=== PATIENT | female | born 1995 | race Caucasian/White ===

== ENCOUNTER 2024-05-20 04:55 | Emergency (ER) | payer SELFPAY ==
--- NOTE | ~2024-05-20 | US_ITS ---
EXAMINATION: US OB <= 14 weeks fetus DATE: 05/20/2024 08:16 INDICATION: Abdominal pain and cramping. Nausea and vomiting. TECHNIQUE: Real-time transabdominal and transvaginal obstetric ultrasound. FINDINGS: No prior studies for comparison. The uterus measures 11.3 x 7.7 x 8.1 cm. There is an intrauterine gestational sac, with pole id entified. The crown rump length measures 5.39 cm, which correlates with a estimated gestational age of 12 weeks 0 days. heart tones are identified measuring 163 BPM. The ovaries are within norm al limits. Right ovary measures 2.9 x 1.7 x 2.6 cm. Left ovary measures 1.9 x 2.3 x 1.3 cm. No free f luid in the pelvis. IMPRESSION: 1. SL IUP with an EGA of 12 weeks, 0 days (EDC by current ultrasound of 12/02/2024). Reviewed, dictated and finalized at location A. [employer] SAL[employer] COORDINATOR IMPRESSION: 1. SL IUP with an EGA of 12 weeks, 0 days (EDC by current ultrasound of 12/03/19 25).
--- OUTSIDE RECORDS SUMMARY | 2024-05-20 04:58 | XMS_ITS | Clinical Summary ---
Author Organization [facility] Address [address] [place] [address] [place] [address] Care Team Providers Care Border Patrol Agent Name Role Phone Marisol Graham GLADIS Primary Care Provider [phone] Allergies No known active allergies Medications MV & Min w/FA-DHA ( [facility] OR) Active ALPRAZolam (XANAX) 0.25 MG tabletIndication s:Panic attacks,Generali zed anxiety disorder TAKE 1 TO 2 TABLETS(0.2 5 TO 0.5 MG) BY MOUTH TWICE DAILY NEEDED FOR SLEEP 60 tablet 1 12/10/2023 Active escitalopram (LEXAPRO) 10 MG tabletIndication s:Moderate episode of recurrent major depressive disorder ([facility] HHS/HCC),General ized anxiety disorder TAKE 1 TABLET(10 MG) BY MOUTH DAILY 30 tablet 1 02/14/2024 Active Active Problems Problem Noted Date Diagnosed Date Vitamin D deficiency, unspecified 02/25/2024 Body mass index (BMI) less than 18.5 02/25/2024 Epidermoid cyst of face 05/01/2023 Iron deficiency anemia secon neema to inadequate dietary iron intake 03/08/2022 Panic attacks 06/08/2021 Moderate episode of recurren t major depressive disorder (CMS/HCC HHS/HCC) 07/05/2020 Body mass index (BMI) of 21.0 to 21.9 in adult 0 11/03/2019 Low HDL (under 40) 02/06/2019 Generalized anxiety disorder 12/29/2018 Overview (10/31/2019): Last Assessment & Plan: Anxiety is severe. She requests to increase dosage of both Paroxetine and Alprazolam. I have declined to increase her dosage of Xanax. I have reviewed with her again the dangers of chronic use of benzodiazepines. She has problems with sleeping at night, and I have encouraged her to take Melatonin (OTC) as needed. Due to the chronic and severe nature of her anxiety, I have encouraged her to seek out treatment with a therapist and with a psychiatrist. She denies any current suicidal thinking, but I have warned her that increasing her Paxil dose to 40 mg which I have done today could cause her to have side effects including suicidal thinking. I have advised her to try to continue to exercise regularly and to practice prayer and meditation to help with anxiety. I have asked her to see me again in 1 month for another virtual visit. Resolved Problems Problem Noted Date Diagnosed Date Resolved Date 31 weeks gestation of ([facility]) 05/01/2023 02/25/2024 20 weeks gestation of ([facility]) 02/14/2023 02/25/2024 Acne vulgaris 07/05/2020 03/08/2022 Benign nevus 07/05/2020 03/08/2022 Close exposure to COVID-19 virus 05/19/2020 07/27/2020 Cough 05/19/2020 07/27/2020 Acute nonintractable headach e, unspecified headache type 05/19/2020 07/27/2020 Other fatigue 05/19/2020 07/27/2020 Fever, unspecified fever cause 05/19/2020 07/27/2020 Vaginal bleeding in pregnanc y, first trimester ([facility]) 12/12/2019 07/27/2020 SAB (spontaneous ) ([facility]) 12/12/2019 07/27/2020 Anxiety 11/03/2019 05/01/2023 Amenorrhea 11/03/2019 07/27/2020 Less than 8 weeks gestation of ([facility]) 11/03/2019 12/12/2019 Encounters Date Type Department Care Team Description 03/28/[address] [facility] Family & Internal Medicine [address] [address] Marisol Graham FNP Medication 02/25/2024 1:00 PM OYSTER PREPARER Office Visit [facility] Family & Internal Medicine [address] [phone] Marisol Graham, GLADIS Perspiration (Patient c/o night sweats x 8 months. ); Anxiety (Patient would like to discuss her dosage of alprazolam. ); Back Pain (Patient c/o of back pain x 8 months. ) 02/25/2024 Travel from Last 3 Months Immunizations Name Administration Dates Next Due Tdap (Generic) 02/03/2022 Family History Medical History Relation Comments No Known Problems Father Parkinson's Disease Maternal Grandfather Relation Status Comments Father Alive Maternal Grandfather (Age 77) Mother Social History Tobacco Use Types Packs/Day Years Used Date Smoking Tobacco: Former Cigarettes 0.3 4 Smokeless Tobacco: Never Tobacco Cessation:Counseling Given: Yes Alcohol Use Standard Drinks/Week Comments Yes 0 (1 standard drink = 0.6 oz pur e alcohol) rarely PHQ-2 Answer Date Recorded Patient Health Questionnaire-2 Score 2 05/01/2023 Comments No Sex and Gender Information Value Date Recorded Sex Assigned at Female 04/30/2023 8:26 AM OYSTER PREPARER Legal Sex Female 2:07 PM CDT Gender Identity Female 04/30/2023 8:26 AM OYSTER PREPARER Sexual Orientation Straight 04/30/2023 8: 26 AM OYSTER PREPARER Last Filed Vital Signs Vital Sign Reading Time Taken Comments Blood Pressure 97/62 02/25/2024 1:08 PM OYSTER PREPARER Pulse 72 02/25/2024 1:08 PM OYSTER PREPARER Temperature 37.1 ??C (98.8 ??F) 02/25/2024 1:08 PM CS T Respiratory Rate 16 02/25/2024 1:08 PM OYSTER PREPARER Oxygen Saturation 100% 02/25/2024 1:08 PM OYSTER PREPARER Inhaled Oxygen Concentration - - Weight 57.6 kg (126 lb 14.4 oz) 02/25/2024 1:08 PM OYSTER PREPARER Height 175.3 cm (5' 9 ) 02/25/2024 1:08 PM OYSTER PREPARER Body Mass Index 18.74 02/25/2024 1:08 PM OYSTER PREPARER Plan of Treatment Health Maintenance Due Date Last Done Comments Cervical Cancer Screening Pa p Smear (Age 21 to 29) Every 3 Years 1996 Cervical Cancer Screening 1996 Annual Physical 08/27/1999 Hepatitis B Vaccines (1 of 3 - 19+ 3-dose series) 08/27/2015 PHQ-2 (Physician [place]) 04/23/2024 05/01/2023 PHQ-2 (Physician [place]) 05/01/2024 05/01/2023 COVID-19 Vaccine (2 - 2023-2 5 season) 2025 11/01/2020 Postponed from 12/22 (Patient Refused) Influenza Adult (#1) 2025 Postpon ed from 01/22/2024 (Patient Refused) DTaP, Tdap and Td Vaccines ( 2 - Td or Tdap) 02/04/2032 02/03/2022 Hepatitis C Completed 12/28/2022, 02/20/2022 HPV Vaccines Aged Out No longer eligi ble based on patient's age to complete this topic Meningococcal B Vaccine Aged Out No l onger eligible based on patient's age to complete this topic Meningococcal Vaccine Aged Out No jose mari eligible based on patient's age to complete this topic Pneumococcal Vaccine: Pediatrics (0 to 5 Years) and At-Risk Patients (6 to 64 Years) Aged Out No longer eligible b ased on patient's age to complete this topic RSV Immunizations Under 20 Months Aged Out No longer eligible b ased on patient's age to complete this topic Procedures Procedure Name Priority Date/Time Associated Diagnosis Comments MG/PCCL UDS W CONF Routine 02/25/2024 1: 31 PM OYSTER PREPARER Panic attacks High risk medication use TEST URINE Routine 02/25/2024 Amenorrhea from Last 3 Months Results * (ABNORMAL) MG/PCCL UDS W CONF (02/25/2024 1:31 PM OYSTER PREPARER) RESULT SUMMARY [facility] Comment: ?Prescribed ?Prescribed ?Not Prescribed ?Consistent ?Inconsistent ?Inconsistent ?Alprazolam ? PRESCRIBED DRUG 1 (U) Alprazolam [facility] FENTANYL SCREEN (U) NEGATIVE <0.5 ng/mL [facility] [place] MORPHINE (U) NEGATIVE <10 ng/mL [facility] [place] DESMETHYLTRAMADOL (U) NEGATIVE <100 ng/mL [facility] [place] TRAMADOL (U) NEGATIVE <100 ng/mL [facility] TRAMADOL COMMENTS [facility] Comment:See LDT Notes AMPHETAMINES PM NEGATIVE <500 ng/mL [facility] BARBITURATES PM (U) NEGATIVE <300 ng/mL [facility] [place] BENZODIAZEPINES PM (U) NEGATIVE <100 ng/mL [facility] BENZODIAZEPINES PM MEDMATCH (U) INCONSISTENT( A) [facility] COCAINE METABOLITE PM (U) NEGATIVE <150 ng/mL [facility] MARIJUANA METABOLITE PM (U) NEGATIVE <20 ng/mL [facility] METHADONE PM (U) NEGATIVE <100 ng/mL [facility] OPIATES PM (U) NEGATIVE <100 ng/mL [facility] [place] OXYCODONE PM (U) NEGATIVE <100 ng/mL [facility] [place] CREATININE RANDOM (U) 53.4 > or = 20.0 mg/dL [facility] [place] pH PM (U) 5.7 4.5 - 9.0 [facility] OXIDANT NEGATIVE <200 mcg/mL [facility] NOTE [facility] Comment: This drug testing is for medical treatment only. Analysis was performed as non-forensic testing and these results should be used only by healthcare providers to render diagnosis or treatment, or to monitor progress of medical conditions. LDT Notes: Confirmation tests were developed and their analytical performance characteristics have been determined by [facility]. It has not been cleared or approved by the FDA. This assay has been validated pursuant to the CLIA regulations and is used for clinical purposes. medMATCH(R) enables providers to identify if drug use is consistent or inconsistent with a corresponding prescribed medication(s) list. Healthcare Providers needing Interpretation assistance, please contact us at [phone] ( ) M-F, 8am to 10pm EST URINE SPECIMEN / Unknown 02/25/2024 1:31 PM OYSTER PREPARER 02/26/2024 1:47 AM OYSTER PREPARER Narrative Resulting Agency Comment Performing Organization Information: ?Site ID: ?Name: [facility] ?Address: [address] [place] [address] ?Director: Júnior Farah ?Site ID: [place] ?Name: [facility] ?Address: [address] [place] [address] ?Director: Ashley Archer MD Marisol Rauschsteph [facility] URINE ORDERABLES Final Result Performing Organization Address City/[facility] Co de Phone Number [facility] [address] [place] [address], [facility] [address] [place] [address] * TEST URINE (02/25/2024) URINE HCG TEST NEGATIVE NEGATIVE [facility] Internal Control: VALID VALID [facility] URINE SPECIMEN FROM [facility] / Unknown 02/25/2024 Marisol Granicuszer [facility] URINE ORDERABLES Final Result Performing Organization Address [facility] Co de Phone Number [facility] [address] [place] [address], from Last 3 Months Insurance [id number] MEDICA[facility] Care Teams Border Patrol Agent Relationship Specialty Start Date End Date Marisol Graham FNP [address] [place] [id number] PCP - General Nurse Practitioner Family 10/31/19
--- OUTSIDE RECORDS SUMMARY | 2024-05-20 04:58 | XMS_ITS | Referral Summary ---
Author Organization [facility] Address [address] [place] [address] Care Team Providers Care Engineering Supervisor Name Role Phone Marisol Graham NP Primary Care Provider [phone] Allergies No known active allergies Medications hydrOXYzine (ATARAX) 25 mg tablet 3 Active vit 27-xmks-ivoku-d guillen 27mg iron- 800 mcg-250 mg capsule Take by mouth Active benzocaine-ment hoL (DERMOPLAST) 20-0.5 % aerosolIndicati ons:Minor Skin Wound Pain Apply 1 Application (1 spray total) topically as needed for other (perianal area for pain) 78 g 4 Active docusate sodium (COLACE) 100 mg capsuleIndicati ons:constipatio n,Stool Softener Take 1 capsule (100 mg total) by mouth 2 (two) times a day as needed for constipation 30 capsule 4 Active escitalopram (LEXAPRO) 10 mg tabletIndicatio ns:Anxiety with Depression Take 1 tablet (10 mg total) by mouth daily 60 tablet 1 4 Active ibuprofen (ADVIL,MOTRIN) 600 mg tabletIndicatio ns:Cramps Take 1 tablet (600 mg total) by mouth every 6 (six) hours as needed for pain 90 tablet 4 Active Active Problems Problem Noted Date Diagnosed Date Normal course 06/29/2023 Situational mixed anxiety and depressive disorde r 06/29/2023 (spontaneous vaginal delivery) 06/28/2023 Resolved Problems Problem Noted Date Diagnosed Date Resolved Date Encounter for elective induction of labor 06/28/2023 06/29/2023 Normal labor 02/20/2022 06/29/2023 Immunizations Name Administration Dates Next Due MMR 06/29/2023(Deferred: Contraindic ation) Varicella 06/29/2023(Deferred: Patient Ref used) Social History Tobacco Use Types Packs/Day Years Used Date Smoking Tobacco: Never Tobacco Cessation:Counseling Given: Not Answered AUDIT-C Answer Date Recorded Q1: How often do you have a drink containing alc ohol? Never 06/27/2023 Average Number of Drinks Not on file 024 Frequency of Binge Drinking Not on file 09/2023 [facility] - Occupational Stress Questionnaire Answer Date Recorded Do you feel stress - tense, restless, nervous, or anxious, or unable to sleep at night because your mind is troubled all the time - these days? Only a little 02/20/2022 Cobb Depression Scale Answer Date Recorded Cobb Depression Scale Total 1 06/29/2023 The thought of harming myself has occurred to me . Never 06/29/2023 Personal Safety Answer Date Recorded Have you ever been in or are you currently in a harmful physical or emotional relationship or is someone making you feel afraid or unsafe? Denies 06/27/2023 Comments No Sex and Gender Information Value Date Recorded Sex Assigned at Not on file Legal Sex Female 6:49 PM WATER TREATMENT PLANT SUPERVISOR Gender Identity Not on file Sexual Orientation Not on file Last Filed Vital Signs Vital Sign Reading Time Taken Comments Blood Pressure 92/56 06/29/2023 6:00 AM WATER TREATMENT PLANT SUPERVISOR Pulse 78 06/29/2023 6:00 AM WATER TREATMENT PLANT SUPERVISOR Temperature 36.8 ??C (98.2 ??F) 06/29/2023 6:00 AM CS T Respiratory Rate 16 06/29/2023 6:00 AM WATER TREATMENT PLANT SUPERVISOR Oxygen Saturation 98% 06/29/2023 6:00 AM WATER TREATMENT PLANT SUPERVISOR Inhaled Oxygen Concentration - - Weight 70.8 kg (156 lb) 06/27/2023 10:30 PM WATER TREATMENT PLANT SUPERVISOR Height 175.3 cm (5' 9 ) 06/27/2023 10:30 PM WATER TREATMENT PLANT SUPERVISOR Body Mass Index 23.04 06/27/2023 10:30 PM WATER TREATMENT PLANT SUPERVISOR Plan of Treatment Not on file Advance Directives For more information, please contact: [phone] * Full Code (Latest Code Status on File) Date Activated Date Inactivated Comments 06/28/2023 6:37 AM 06/29/2023 6:27 PM * Full Code Date Activated Date Inactivated Comments 06/27/2023 9:18 PM 06/28/2023 6:37 AM Full CPR in ca se of cardiopulmonary arrest * Full Code Date Activated Date Inactivated Comments 02/20/2022 9:18 AM 02/23/2022 8:06 PM Full CPR in case of cardiopulmonary arrest Care Teams Engineering Supervisor Relationship Specialty Start Date End Date Marisol Graham NP [address] [place] [id number] PCP - General Nurse Practitioner 05/11/23
[2024-05-20 04:59] VITALS: BP 102/64; PULSE 101; RESP 20; TEMP 36.2; O2SAT 99
--- OUTSIDE RECORDS SUMMARY | 2024-05-20 04:59 | XMS_ITS | Data Portability ---
Author Organization [facility] [employer] , [facility] Address [address] [place] [address] Assessment No assessment recorded. Plan of Treatment Reminders Order Date Submit Date Provider Last Modified By Organization Details Last Modified Time Details Appointments SITE SAFETY REPRESENTATIVE SONO 30 2024 10:15A M Ultrasound Becky 4 Not available Not available Not available SITE SAFETY REPRESENTATIVE EST 2024 10:45A M ANGLE TRAN Not available Not available Not available Lab bacteri al vaginos is + vaginit is panel, vaginal 2023 024 [facility] [address] [place] [address], [address], 05/25/2023 13:48:55 strepto coccus group B, culture , unspeci fied specime n 2023 024 Showcase [facility], [address] [place], [address], 06/09/2023 11:13:14 Referral None recorde d. Procedures None recorde d. Surgeries None recorde d. Imaging None recorde d. Medication Orders Difluca n 150 mg tablet 2023 024 kmcalister 3 [id number], [address] [place], [place], [id number], 06/06/2023 15:36:24 Patient TargetsNo targets recorded. Patient InstructionsNo instructions recorded. Reason for Referral None Reported. Results Created Date Observation Date Name Description Value Unit Range Abnormal Flag Note LastModifiedBy Organization Detail LastModifiedTime 12/13/04/05/2023 (50G) 1HR - GLUCO SE DARÍO ANCE TEST, REAGANA PATRIZIA DE LA CRUZE N glucose (50g) 1 hour 108 mg/dL <135 normal Not Available Andrewa [address], [address], 04/05/2023 11:27:19 04/18/20 23 04/19/2023 CBC (INCL UDES DIFF/ PLT) WBC 7.6 thous and/u L 4.0 - 9.8 normal Not Available [address], [address], 04/19/2023 10:56:11 04/18/20 23 04/19/2023 CBC (INCL UDES DIFF/ PLT) RBC 3.3 doyle on/uL 3.9 - 4.9 low Not Available [address], [address], 04/19/2023 10:56:11 04/18/20 23 04/19/2023 CBC (INCL UDES DIFF/ PLT) hemoglobin 9.8 g/dL 11.8 - 14.8 low Not Available [address], [address], 04/19/2023 10:56:11 04/18/20 23 04/19/2023 CBC (INCL UDES DIFF/ PLT) hematocrit 30.9 % 35.5 - 44.0 low Not Available [address], [address], 04/19/2023 10:56:11 04/18/20 23 04/19/2023 CBC (INCL UDES DIFF/ PLT) MCV 92.8 fL 82.0 - 99.0 normal Not Available [address], [address], 04/19/2023 10:56:11 04/18/20 23 04/19/2023 CBC (INCL UDES DIFF/ PLT) MCH 29.4 pg 27.2 - 32.6 normal Not Available [address], [address], 04/19/2023 10:56:11 04/18/20 23 04/19/2023 CBC (INCL UDES DIFF/ PLT) MCHC 31.7 g/dL 31.5 - 35.5 normal Not Available [address], [address], 04/19/2023 10:56:11 04/18/20 23 04/19/2023 CBC (INCL UDES DIFF/ PLT) RDW-CV 13.1 % 11.5 - 14.5 normal Not Available [address], [address], 04/19/2023 10:56:11 04/18/20 23 04/19/2023 CBC (INCL UDES DIFF/ PLT) platelet 152 thous and/u L 140 - 350 normal Not Available [address], [address], 04/19/2023 10:56:11 04/18/20 23 04/19/2023 CBC (INCL UDES DIFF/ PLT) MPV 11.9 fL 9.3 - 12.4 normal Not Available [address], [address], 04/19/2023 10:56:11 04/18/20 23 04/19/2023 CBC (INCL UDES DIFF/ PLT) absolute neutrophil 5.77 thous and/u L 1.90 - 7.00 normal Not Available [address], [address], 04/19/2023 10:56:11 04/18/20 23 04/19/2023 CBC (INCL UDES DIFF/ PLT) absolute lymphocyte 1.34 thous and/u L 0.70 - 4.50 normal Not Available [address], [address], 04/19/2023 10:56:11 04/18/20 23 04/19/2023 CBC (INCL UDES DIFF/ PLT) absolute monocyte 0.41 thous and/u L 0.10 - 1.30 normal Not Available [address], [address], 04/19/2023 10:56:11 04/18/20 23 04/19/2023 CBC (INCL UDES DIFF/ PLT) absolute eosinophil 0.02 thous and/u L <0.70 normal Not Available [address], [address], 04/19/2023 10:56:11 04/18/20 23 04/19/2023 CBC (INCL UDES DIFF/ PLT) absolute basophil 0.05 thous and/u L <0.20 normal Not Available [address], [address], 04/19/2023 10:56:11 04/18/20 23 04/19/2023 CBC (INCL UDES DIFF/ PLT) absolute immature granulocyte 0.05 thous and/u L <0.03 high Not Available [address], [address], 04/19/2023 10:56:11 04/18/20 23 04/19/2023 OB 28W (SYPH HIV 1/2 Ag/Ab Non-Re active non-re active normal Not Available [address], [address], 04/19/2023 12:04:14 04/18/20 23 04/19/2023 OB 28W (SYPH syphilis Ab Non-Re active non-re active normal Not Available [address], [address], 04/19/2023 12:04:14 05/24/19 24 05/25/2023 VAGIN ITIS PLUS STD PANEL bacterial vaginosis BV POS negati ve abnormal Not Available [address], [address], 05/25/2023 13:48:55 05/24/19 24 05/25/2023 VAGIN ITIS PLUS STD PANEL walter species C. spp POS negati ve abnormal Not Available [place] Leobardo [address] [place] [address], [address], 05/25/2023 13:48:55 05/24/19 24 05/25/2023 VAGIN ITIS PLUS STD PANEL walter glabrata C. gla neg negati ve normal Not Available [address], [address], 05/25/2023 13:48:55 05/24/19 24 05/25/2023 VAGIN ITIS PLUS STD PANEL trichomonas vaginalis CV/TV TRICH neg negati ve normal Not Available [address], [address], 05/25/2023 13:48:55 05/24/19 24 05/25/2023 VAGIN ITIS PLUS STD PANEL chlamydia trachomatis CT neg negati ve normal This repor t is inten ded for us in clini azul monit oring and manag ement of patie nts. It is not inten ded for use in medic al-le gal appli catio n. Not Available [address], [address], 05/25/2023 13:48:55 05/24/19 24 05/25/2023 VAGIN ITIS PLUS STD PANEL neisseria gonorrhoeae GC neg negati ve normal This repor t is inten ded for us in clini azul monit oring and manag ement of patie nts. It is not inten ded for use in medic al-le gal appli catio n. Not Available [place] [facility] [address] [place] [address], [address], 05/25/2023 13:48:55 06/06/19 24 06/09/2023 STREP TOCOC CUS, GROUP B CULTU RE streptococcu s, group B culture SEE NOTE STREP TOCOC CUS, GROUP B CULTU RE Micro Numbe r: [id number] Test Statu s: Final Speci men Sourc e: Vagin al/an orect al Speci men Quali ty: Adequ ate Resul t: No group B Strep tococ cus isola annette Note per CDC guide lines optim al recov maral is achie chidi by swabb ing both the lower vagin a and rectu m (thro ugh the anal sphin cter) . Not Available [facility] [address], [place], [address], 06/09/2023 11:13:14 05/04/19 24 05/02/2023 US, obste tric, follo w-up No observ ation record ed. [email or web address] Kayla [address], [place], [address], 05/05/2023 13:18:11 Result Notes None recorded. Problems Name Problem SNOMED Code Status Onset Date Resolution Date Notes Provider Name and Address Organization Details Recorded Time Anxiety disorder Completed d/c's SSRI and Benzo at start of . Discussed lifestyle modificat ion, SSRI maintenan ce and Benzodiaz epine d/c'd Aurora dejesus, [facility] IV 3 11:45:11 Routine antenata l care Completed O+/RNI/NR x4. Anatomy complete Dating per Sure LMP consisten t with 1st tri Aurora dejesus, [facility] IV 3 11:45:11 Pregnanc y [id number] Completed 202111/14/2022 PAULY MONAE DO [facility] [place], [address], [facility] IV 4 13:48:02 Pregnanc y [id number] Completed 202210/22/2023 PAULY MONAE DO [address] [place], [address], [facility] IV 4 13:48:02 Problem Notes None recorded. Procedures Surgical History Date Name Laterality Status Provider Name and Address Organization Details Recorded Time 12/28/2022 Date of Last Pap Smear completed Elicia Sauceda [facility] IV 06/19/2023 14:51:14 Imaging Results Imaging Date Name Status LastModified by Organiz ation Details LastModified Time 05/02/2023 US, obstetric, follow-up completed ozzie Garza [address], [place], [address], 05/05/2023 13:18:11 Procedure Notes None recorded. Medical Equipment None Reported. Allergies No known drug allergies Medications Name Sig Start Date Stop Date Status Note LastModified by Organization Details LastModified Time alprazolam 1 mg tablet 08/15 completed Not Available Not Available Not Available fluconazole 150 mg tablet Take 1 tablet by oral route. 06/06 completed Not Available Not Available Not Available fluoxetine 10 mg tablet TAKE 1 TABLET (10 MG TOTAL) BY MOUTH DAILY. PATIENT MUST BE SEEN FOR FURTHER REFILLS 11/14 completed Not Available Not Available Not Available sertraline 100 mg tablet TAKE 2 TABLETS BY MOUTH DAILY 08/15 completed Not Available Not Available Not Available metronidazo le 500 mg tablet TAKE 1 TABLET BY MOUTH TWICE DAILY 07/10 completed Not Available Not Available Not Available sulfamethox azole 800 mg-trimetho prim 160 mg tablet TAKE 1 TABLET BY MOUTH TWICE A DAY FOR 10 DAYS 08/15 completed Not Available Not Available Not Available alprazolam 0.5 mg tablet TAKE 1-2 TABLETS NEEDED ORALLY TWICE A DAY FOR 30 DAYS 11/14 completed Not Available Not Available Not Available amoxicillin 875 mg tablet TAKE 1 TABLET BY MOUTH TWICE A DAY FOR 10 DAYS 08/15 completed Not Available Not Available Not Available alprazolam 0.25 mg tablet TAKE 1-2 TABLETS BY MOUTH TWICE DAILY NEEDED FOR SLEEP active Not Available Not Available No t Available ferrous sulfate 325 mg (65 mg iron) tablet TAKE 1 TABLET BY MOUTH EVERY DAY WITH BREAKFAST 11/14 completed Not Available Not Available Not Available fluoxetine 20 mg tablet TAKE 1 AND 1/2 TABLETS BY MOUTH EVERY DAY 11/14 completed Not Available Not Available Not Available docusate sodium 100 mg capsule TAKE 1 CAPSULE BY MOUTH TWICE DAILY NEEDED FOR CONSTIPAT ION active Not Available Not Available No t Available sertraline 25 mg tablet TAKE 1 TABLET BY MOUTH EVERY DAY FOR 60 DAYS 01/20 completed Not Available Not Available Not Available buspirone 7.5 mg tablet TAKE 1 TABLET BY MOUTH TWICE A DAY FOR 30 DAYS 11/14 completed Not Available Not Available Not Available hydroxyzine HCl 25 mg tablet TAKE 1 TABLET BY MOUTH THREE TIMES DAILY NEEDED active Not Available Not Available No t Available ibuprofen 600 mg tablet TAKE 1 TABLET BY MOUTH EVERY 6 HOURS NEEDED FOR PAIN active Not Available Not Available No t Available ondansetron 4 mg disintegrat ing tablet DISSOLVE 1 TABLET ON THE TONGUE THREE TIMES DAILY 06/06 completed Not Available Not Available Not Available sertraline 50 mg tablet TAKE 1 TABLET BY MOUTH EVERY DAY FOR 30 DAYS 2021 active Not Available Not Available Not Avai lable Dermoplast (with menthol) 20 %-0.5 % topical aerosol INSTILL 1 SPRAY TOPICALLY NEEDED FOR PERIANAL AREA PAIN active Not Available Not Available No t Available buspirone 15 mg tablet TAKE 1 TABLET BY MOUTH THREE TIMES DAILY 11/14 completed Not Available Not Available Not Available hydroxyzine pamoate 25 mg capsule TAKE 1 CAPSULE BY MOUTH EVERY DAY NEEDED 11/14 completed Not Available Not Available Not Available escitalopra m 10 mg tablet active Not Available Not Available Not Available bupropion HCl XL 300 mg 24 hr tablet, extended release TAKE 1 TABLET BY MOUTH EVERY DAY IN THE MORNING 11/14 completed Not Available Not Available Not Available bupropion HCl XL 150 mg 24 hr tablet, extended release TAKE 1 TABLET BY MOUTH EVERY DAY IN THE MORNING 11/14 completed Not Available Not Available Not Available Prena1 Radha 30 mg-1.4 mg-200 mg capsule,imm ediate - delay release Take 1 capsule every day by oral route. 01/31 completed Not Available Not Available Not Available Accrufer 30 mg capsule Take 1 capsule twice a day by oral route. 06/06 completed Not Available Not Available Not Available Vitals Date Recorded Body height Provider Name an d Address Organization Details Last Updated DateTime 05/02/2023 175.26 cm [facility]eto [facility] 05/02/2023 12:26:30 Date Recorded Body mass index (BMI) Provider Name and Address Organization Details Last Updated DateTime 05/02/2023 21.5 kg/m2 [facility] 05/02/2023 13:12:10 Date Recorded Body weight Provider Name an d Address Organization Details Last Updated DateTime 05/02/2023 46293.862661 g Asmita Darling, [facility] [address] [place], [address], [place] [facility] IV 05/02/2023 13:27:14 Date Recorded Body temperature Provider Name a nd Address Organization Details Last Updated DateTime 05/02/2023 97.5 [degF] Aurora Tyrone [place] [facility] 05/02/2023 13:12:13 Date Recorded Body height Provider Name an d Address Organization Details Last Updated DateTime 05/24/2023 175.26 cm Gabby Tire Molder [place] [facility] IV 05/24/2023 14:05:24 Date Recorded Body mass index (BMI) Provider Name and Address Organization Details Last Updated DateTime 05/24/2023 22 kg/m2 [place] [facility] IV 05/24/2023 14:05:33 Date Recorded Body weight Provider Name an d Address Organization Details Last Updated DateTime 05/24/2023 61555.276545 g Kayy Gruber, [facility] [address] [place], [address], [place] [facility] IV 05/24/2023 14:27:52 Date Recorded Body temperature Provider Name a nd Address Organization Details Last Updated DateTime 05/24/2023 97.6 [degF] [place]by [place] [facility] IV 05/24/2023 14:05:42 Date Recorded Body height Provider Name an d Address Organization Details Last Updated DateTime 06/06/2023 175.26 cm Aurora Tyrone [facility] IV 06/06/2023 15:00:21 Date Recorded Body mass index (BMI) Provider Name and Address Organization Details Last Updated DateTime 06/06/2023 22.6 kg/m2 Aurora Tyrone [facility] IV 06/06/2023 15:36:14 Date Recorded Body weight Provider Name an d Address Organization Details Last Updated DateTime 06/06/2023 01789.123988 g Asmita Darling, [facility] [address] [place], [address], [place] [facility] IV 06/06/2023 15:58:41 Date Recorded Body temperature Provider Name a nd Address Organization Details Last Updated DateTime 06/06/2023 97.5 [degF] Aurora Hansen [facility] 06/06/2023 15:36:17 Date Recorded Body height Provider Name an d Address Organization Details Last Updated DateTime 06/13/2023 175.26 cm Aurora Hansen [facility] IV 06/13/2023 11:07:36 Date Recorded Body mass index (BMI) Provider Name and Address Organization Details Last Updated DateTime 06/13/2023 22.6 kg/m2 Aurora Hansen [facility] IV 06/13/2023 11:07:45 Date Recorded Body weight Provider Name an d Address Organization Details Last Updated DateTime 06/13/2023 62569.87759 g Asmita Darling, [facility] [address] [place], [address], [place] [facility] IV 06/13/2023 11:34:50 Date Recorded Body temperature Provider Name a nd Address Organization Details Last Updated DateTime 06/13/2023 97.5 [degF] Aurora Hansen [facility] 06/13/2023 11:07:49 Date Recorded Body height Provider Name an d Address Organization Details Last Updated DateTime 06/21/2023 175.26 cm Tramea Komal [facility] 06/21/2023 11:36:51 Date Recorded Body mass index (BMI) Body weight Provider Name and Address Organization Details Last Updated DateTime 06/21/2023 22.9 kg/m2 71128.50687 g Tramea Komal [facility] IV 06/21/2023 11:37:52 Date Recorded Body temperature Provider Name a nd Address Organization Details Last Updated DateTime 06/21/2023 97 [degF] Tramea Komal [facility] 06/21/2023 11:37:17 Date Recorded Systolic blood pressure Diastolic blood pressure Provider Name and Address Organization Details Last Updated DateTime 05/02/2023 110 mm[Hg] 60 mm[Hg] Aurora Hansen [facility] IV 05/02/2023 13:13:16 Date Recorded Systolic blood pressure Diastolic blood pressure Provider Name and Address Organization Details Last Updated DateTime 05/24/2023 110 mm[Hg] 68 mm[Hg] Gabby Abel [facility] IV 05/24/2023 14:07:15 Date Recorded Systolic blood pressure Diastolic blood pressure Provider Name and Address Organization Details Last Updated DateTime 06/06/2023 102 mm[Hg] 66 mm[Hg] Aurora Hansen [facility] IV 06/06/2023 15:36:10 Date Recorded Systolic blood pressure Diastolic blood pressure Provider Name and Address Organization Details Last Updated DateTime 06/13/2023 98 mm[Hg] 70 mm[Hg] Aurora Hansen [facility] IV 06/13/2023 11:07:43 Date Recorded Systolic blood pressure Diastolic blood pressure Provider Name and Address Organization Details Last Updated DateTime 06/21/2023 112 mm[Hg] 60 mm[Hg] Elicia Sauceda [facility] IV 06/21/2023 11:37:03 Social History Question Answer Notes LastModified by Organizat ion Details LastModified Time Tobacco Smoking Status Never Smoker Elicia Sauceda [facility], [facility] IV 02/08/2022 17:44:13 What Is Your Level Of Alcohol Consumption? None Information not available 02/08/2022 If You Are , What Was Your Level Of Alcohol Consumption Prior To ? None [email or web address] Information not available 12/28/2022 Are You Blind Or Do You Have Difficulty Seeing? No Information not available 02/08/2022 Are You Currently Employed? Yes [email or web address] Information not available 03/16/2023 Are You Deaf Or Do You Have Serious Difficulty Hearing? No Information not available 02/08/2022 What Type Of Diet Are You Following? REGULAR Information not available 02/08/2022 What Is The Highest Grade Or Level Of School You Have Completed Or The Highest Degree You Have Received? [id number] [email or web address] Information not available 03/16/2023 What Is Your Occupation? [employer] [email or web address] Information not available 03/16/2023 How Many Children Do You Have? 1 [email or web address] Information not available 11/14/2022 What Is Your Relationship Status? Single Information not available 02/08/2022 Are You Sexually Active? Yes Information not available 02/08/2022 Do You Use Any Illicit Or Recreational Drugs? No Information not available 02/08/2022 Sex: Female Functional Status Question Answer Note LastModified by Organization D etails LastModified Time What is your exercise level? None Information not available 02/08/2022 Mental Status None recorded. Family History Nothing Reported. Medical History Condition Response Anxiety Disorder Y Depression Y Gynecological History Statement/Question Response HPV Vaccine Y Date of Last Pap Smear 12/28/2022 Current Control Method Age at Menarche 15 Date of LMP 09/25/2022 Obstetrics History GPAL:G 3 P 2 0 1 2 Type Value Full Term 2 Spontaneous 1 Living 2 Total 3 Immunizations Vaccine Type Date Status Note Provider Kye rivero and Address Organization Details Recorded Time Tdap 02/03/2022 completed [facility] IV 02/08/2022 17:43:21 Past Encounters Encounter ID Performer Location Encounter Start Date Encounter Closed Date Diagnosis/Indication Diagnosis SNOMED-CT Code Diagnosis ICD10 Code Diagnosis Note [id number] LISSETT EVANS CNM [facility] [address] [place] [address] 08/15/2021 15:34:24 08/15/2021 21:32:37 84699412 Z33.1 Infection screening 2437 [address] Z11.9 Routine an tenatal care 173259256 Z34.01 Z34.81 O09.511 O09.521 nob labs sent Situationa l panic attack 064391982 F41.0 Reports panic attacks related to highway and night driving. D/c's prior medication s related to safety of . Discussed safety of continuing SSRI, rx refilled today. changing xanax to hydroxyzin e.discusse d lifestyle modificati ons to include relaxation techniques , mindfulnes s practice's , yoga, Sleep exercise, decreasing sugar and caffeine. [id number] LISSETT EVANS CNM [facility] [address] [place] [address] 09/12/2021 14:54:43 09/12/2021 15:37:50 Routine care 847419609 Z34.01 Z34.81 O09.511 O09.521 NOB labs today. Situationa l panic attack 799941005 F41.0 doing well with med change. Gestation period, 16 weeks 73537598 Z3A.16 IUP @ 16+ wks. No OB complaints . msAFPdecli rudy RTO 4 wks, anatomy sono next visit. [id number] Asmita Darling CNM [facility] h [address] [facility] [place] [address] 10/04/2021 13:57:34 10/04/2021 16:09:52 screening for malformation 201928686 Z36.3 Anxiety 23866498 F41.9 [id number] Asmita Darling CNM [facility] h [address] [facility] [place] [address] 10/26/2021 14:02:54 10/26/2021 15:11:56 Normal in multigravida 0298998411 62807 Z34.82 [id number] [facility] [address] [facility] [place] [address] 11/29/2021 14:25:09 11/29/2021 15:17:30 Routine care 256120446 Z34.03 Z34.83 O09.513 O09.523 28 week labs Gestation period, 27 weeks 43883411 Z3A.27 IUP @ 27+ wks.No OB complaints . Labs, TDaP instructio ns given today. EPDS neg lots of anxiety. . RTO 2 wks Anxiety 41300235 F41.9 sertraline added to hydroxyzin e for anxiety. discussed med adjustment at next visit if needed. [id number] LISSETT EVANS CNM [facility] [address] [facility] [place] [address] 12/13/2021 17:50:37 12/13/2021 18:25:02 Gestation period, 29 weeks 61422961 Z3A.29 IUP @ 29+ wks. No OB complaints . RTO 2 wks. Anxiety 29679388 F41.9 sertraline added to hydroxyzin e for anxiety. discussed med adjustment at next visit if needed. planning telamed visit with lesly to discuss med changes. [id number] LISSETT EVANS CNM [facility] [address] 12/29/2021 17:03:23 01/01/2022 12:55:07 Gestation period, 32 weeks 3424575 Z3A.32 IUP @ 32+ wks. No OB complaints . RTO 2 wks. Anxiety 21593799 F41.9 mood stable at this time. denies SI/HI. Monitoring symptoms and reports currently manageable . [id number] LISSETT EVANS CNM [address] [address] 01/20/2022 16:31:34 01/20/2022 21:18:58 Uterine size for dates discrepancy 040147915 O26.8[facility] 20.2afi, Gestation period, 35 weeks 29740832 Z3A.35 IUP @ 35+ wks. US: No OB complaints . GBS next visit. PTL precaution s. RTO 1 wk. [id number] SHAY DIAS[address] [address] 01/31/2022 17:02:28 01/31/2022 18:23:58 Gestation period, 36 weeks 10640466 Z3A.36 IUP @ 36+ wks. No OB complaints . GBS today. PTL precaution s. RTO 1 wk screening 2437 69597 Z36.9 Mixed anxi ety and depressive disorder 605292236 F41.8 Denies si/hi.Stat es she feels numb.Discu ssed starting sertraline daily. pt amendable at this time. [id number] Asmita Darling, [facility] [address] [place] [address] 02/08/2022 17:36:53 02/09/2022 13:13:52 Mixed anxiety and depressive disorder 652193248 F41.8 [id number] Kayy pacheco, [facility] [address] [place] [address] 02/16/2022 16:16:54 02/16/2022 17:40:55 [id number] Asmita Lincoln Lisset, [facility] [address] [place] [address] 11/14/2022 11:26:53 11/14/2022 17:16:33 test positive 359474146 Z32.01 Dating by LMP of 09/25 with EDC of 07/01 consistent with 7 1/7 week ultrasound today. Complains of nausea, discussed vitamin b6/unisom. [id number] Kayy pacheco, [facility] [address] 12/28/2022 14:22:25 12/29/2022 11:16:28 Routine care 142047737 Z34.01 Z34.81 O09.511 O09.521 screening 2437 21576 Z36.0 Carrier de tection, molecular genetics 4183473 Z14.8 Screening for malignant neoplasm of cervix 902488498 Z12.4 Nausea and vomiting 1693 1999 R11.2 [id number] Kayy pacheco, [facility] [address] [place] [address] 02/15/2023 13:57:13 02/16/2023 13:29:36 screening 105031708 Z36.0 [id number] Kayy pacheco, [facility] [address] [facility] [place] [address] 03/16/2023 11:49:00 03/27/2023 09:10:01 [id number] [facility]ling, [facility] [place] [address] 04/04/2023 12:34:04 04/05/2023 11:27:25 Gestation period, 27 weeks 90613757 Z3A.27 Routine an tenatal care 338045611 Z34.03 Z34.83 O09.513 O09.331 [id number] Asmita Latonia Lisset, [facility] [address] [place] [address] 05/02/2023 12:13:12 05/02/2023 17:32:16 Gestation period, 31 weeks 43742723 Z3A.31 Routine an tenatal care 742666776 Z34.03 Z34.83 O09.513 O09.938 [id number] Kayy Parker is, [facility] [address] [place] [address] 05/24/2023 13:55:37 06/04/2023 13:21:47 Gestation period, 34 weeks [id number] Z3A.34 Candidiasis of vagina 72 051399 B37.31 Acute vaginitis [id number] N76.0 [id number] Asmita Darling, [facility] h [address] [place] [address] 06/06/2023 14:57:10 06/07/2023 11:35:21 Gestation period, 36 weeks [id number] Z3A.36 Routine an tenatal care [id number] Z34.03 Z34.83 O09.513 O09.039 [id number] Asmita Latonia Lisset, [facility] [address] [place] [address] 06/13/2023 10:59:16 06/13/2023 15:42:19 Routine care [id number] Z34.03 Z34.83 O09.513 O09.523 Gestation period, 37 weeks [id number] Z3A.37 [id number] Kayy Parker is, [facility] [address] [place] [address] 06/21/2023 11:15:01 06/28/2023 12:30:22 Gestation period, 38 weeks [id number] Z3A.38 Health Concerns Section Related Observation LastModified by Organization Detai ls LastModified Time None Recorded Concern Status LastModified by Organization Details LastModified Time None Recorded Advance Directives Directive None Recorded Payers Encounter Date Sequence Insurance Name Policy Number Policy [place] Covered Member ID [place] Member ID Guarantor Name 05/02/2023 1 [facility] (MEDICAID REPLACEMENT - HMO) [id number] Aparna Ursula [id number] Aparna Ursula 05/24/2023 1 [facility] (MEDICAID REPLACEMENT - HMO) [id number] Aparna Ursula [id number] Aparna Ursula 06/06/2023 1 [facility] (MEDICAID REPLACEMENT - HMO) [id number] Aparna Ursula [id number] Aparna Ursula 06/13/2023 1 [facility] (MEDICAID REPLACEMENT - HMO) [id number] Aparna Ursula [id number] Aparna Ursula 06/21/2023 1 [facility] (MEDICAID REPLACEMENT - HMO) [id number] Aparna Ursula [id number] Aparna Ursula Notes Date Note Type Note Provider Name and Address Organization Details Recorded Time 05/02/2023 text/html OB ProblemReport ed bypatient.Associated Symptoms:no abdominal pain; no cramping; no contractions; normal movement; no bleeding; no ROM; no vaginal discharge; no vaginal/vulvar itching or irritation; no edema; no visual changes; no headache; no dizziness; no breathlessness Asmita Darling, [facility] [address] [place], [address], [employer] 05/02/2023 13:29:44 05/24/2023 text/html Patient is here today for a routine OB visit. She is currently at {{6 7 8 9 10 11 12 13 14 15 16 17 18 19 20 21 22 23 24 25 26 27 28 29 30 31 32 33 34 35 36 37 38 39 40 41 34.3#}} weeks gestation. vitamins: {{yes* no}} She {{has* has not}} felt movement. She denies any complaints of the presence of vaginal bleed, leaking fluid, abdominal cramps, nausea, vomiting, headache or visual disturbances. Kayy Gruber, [facility] [address] [place], [address], [facility] [employer] IV 06/01/2023 20:20:46 06/06/2023 text/html OB ProblemReport ed bypatient.Associated Symptoms:no abdominal pain; no cramping; no contractions; normal movement; no bleeding; no ROM; no vaginal discharge; no vaginal/vulvar itching or irritation; no edema; no visual changes; no headache; no dizziness; no breathlessness Asmita Darling [address] [place], [address], [facility] [employer] IV 06/06/2023 16:17:20 06/13/2023 text/html OB ProblemReport ed bypatient.Associated Symptoms:no abdominal pain; no cramping; no contractions; normal movement; no bleeding; no ROM; no vaginal discharge; no vaginal/vulvar itching or irritation; no edema; no visual changes; no headache; no dizziness; no breathlessness Asmita Darling [address] [place], [address], [facility] [employer] IV 06/13/2023 11:35:05 06/21/2023 text/html Aparna is here to day for a routine OB visit. She is currently at {{6 7 8 9 10 11 12 13 14 15 16 17 18 19 20 21 22 23 24 25 26 27 28 29 30 31 32 33 34 35 36 37 38 39 40 41 38.1#}} weeks gestation. vitamins: {{yes* no}} She {{has* has not}} felt movement.cidePatient states she has been having contractions and want to be checked [facility] [place], [address], [facility] [employer] IV 06/27/2023 13:54:23 OBGyn Episode Ob Episode Information Episode Created Date Number of Fetuses Patient Bloodtype Patient rh Status Prepregnancy Weight lbs Domestic Partner Domestic Partner Phone Father Name Customer Relations Specialist Status 08/16/19 22 1 O Positive CLOSED Fetus Data First Name Last Name Admitted to NICU Weight (g) Sex Living Outcome Pediatric Complications Fetus ID Race Codes Race Delivery Type F true Full Term [id number] Problems Problem Notes Problem Name Start Date End Date Resolution Snomed Code Not e Anxiety disorder [id number] d/c 's SSRI and Benzo at start of . Discussed lifestyle modification, SSRI maintenance and Benzodiazepine d/c'd Routine care [id number] O+/RNI/NRx4. An atomy completeDating per Sure LMP consistent with 1st tri US Narciso Calculation Initial Narciso Date Initial Exam Date Initial Exam Provider Initial Ultrasound Date Last Menstrual Period Date Ultra Sound Weeks Gestation 02/22/2022 08/15/2021 0 Eighteen To Twenty Week Narciso Update Ultra Sound Date Fundal Height At Umbil Quickening Date Ultra Sound Latest Weeks Gestation Final Narciso Confirmed By Final Narciso Confirmed Date Final Narciso Date Ultra Sound Latest Days Gestation 0 0 Pre-[place] Flowsheet Flowsheet Date 08/15/2021 Dickey Score Blood Edema Fundus Height Fundus Units Glucose Ketones Leukocytes Nitrite Labor Signs Protein Cervic Dilation Cervic Effacement Cervic Station none none none neg Type Weight in lbs Pre/Post Dialysis Refused Weight 123.398185517529 BP Diastolic BP Location Tested BP Systolic BP Type 70 112 Fetus Heart Rate Present A 159 Fetus Movement Comments NOB labs collected, discusse d anxiety lifestyle modifications and medications. Flowsheet Date 09/12/2021 Dickey Score Blood Edema Fundus Height Fundus Units Glucose Ketones Leukocytes Nitrite Labor Signs Protein Cervic Dilation Cervic Effacement Cervic Station none Type Weight in lbs Pre/Post Dialysis Refused BP Diastolic BP Location Tested BP Systolic BP Type 68 110 Fetus Heart Rate Present A 150 Present Fetus Movement Comments no OB complaints, NOB labs t [place]. FWB reassuring, active FM on BSUS. return for anatomy next visit. Flowsheet Date 10/04/2021 Dickey Score Blood Edema Fundus Height Fundus Units Glucose Ketones Leukocytes Nitrite Labor Signs Protein Cervic Dilation Cervic Effacement Cervic Station Type Weight in lbs Pre/Post Dialysis Refused Weight 130.114820987569 BP Diastolic BP Location Tested BP Systolic BP Type 72 118 Fetus Heart Rate Present A 151 Fetus Movement A Yes Comments Anatomy complete Flowsheet Date 10/26/2021 Dickey Score Blood Edema Fundus Height Fundus Units Glucose Ketones Leukocytes Nitrite Labor Signs Protein Cervic Dilation Cervic Effacement Cervic Station none 23 cm Type Weight in lbs Pre/Post Dialysis Refused Weight 136.661683963445 BP Diastolic BP Location Tested BP Systolic BP Type 64 102 Fetus Heart Rate Present A 137 Fetus Movement A Yes Comments Discussed third trimester la bs at next visit. Going to [place]- precautions reviewed. . Flowsheet Date 11/29/2021 Dickey Score Blood Edema Fundus Height Fundus Units Glucose Ketones Leukocytes Nitrite Labor Signs Protein Cervic Dilation Cervic Effacement Cervic Station none cm none none neg Type Weight in lbs Pre/Post Dialysis Refused BP Diastolic BP Location Tested BP Systolic BP Type 64 98 Fetus Heart Rate Present A 134 Present Fetus Movement A Yes Comments 28 week labs completedno ob complaints, fwb reassuringmood stable, reports anxiety daily, started sertraline today.tdap instructions given, unsure if wanting vaccine. discussed risks/benefits. Flowsheet Date 12/13/2021 Dickey Score Blood Edema Fundus Height Fundus Units Glucose Ketones Leukocytes Nitrite Labor Signs Protein Cervic Dilation Cervic Effacement Cervic Station none cm none Type Weight in lbs Pre/Post Dialysis Refused Weight 143.367202513608 BP Diastolic BP Location Tested BP Systolic BP Type 60 118 Fetus Heart Rate Present A Present Fetus Movement A Yes Comments Flowsheet Date 12/29/2021 Dickey Score Blood Edema Fundus Height Fundus Units Glucose Ketones Leukocytes Nitrite Labor Signs Protein Cervic Dilation Cervic Effacement Cervic Station none none none neg Type Weight in lbs Pre/Post Dialysis Refused Weight 145.0181082351 BP Diastolic BP Location Tested BP Systolic BP Type 58 120 Fetus Heart Rate Present A 148 Present Fetus Movement A Yes Comments anxiety stable, reports sara geable at this time. 4d complete Flowsheet Date 01/20/2022 Dickey Score Blood Edema Fundus Height Fundus Units Glucose Ketones Leukocytes Nitrite Labor Signs Protein Cervic Dilation Cervic Effacement Cervic Station none 30 cm none Cramping neg Type Weight in lbs Pre/Post Dialysis Refused Weight 156.230890846298 BP Diastolic BP Location Tested BP Systolic BP Type 60 122 Fetus Heart Rate Present A 146 Fetus Movement A Yes Comments growth today 21% terrie 20.fwb reassuring.anxiety manageable at this time with meds. concerned about anxiety during labor and hospital stay. discussed at length. Flowsheet Date 01/31/2022 Dickey Score Blood Edema Fundus Height Fundus Units Glucose Ketones Leukocytes Nitrite Labor Signs Protein Cervic Dilation Cervic Effacement Cervic Station none 36 cm none Socrates Quiñones neg Type Weight in lbs Pre/Post Dialysis Refused Weight 156.480863029189 BP Diastolic BP Location Tested BP Systolic BP Type Fetus Heart Rate Present A 124 Present Fetus Movement A Yes Comments gbs collected, fwb reassurin g, anxiety and depression a major concern, discussed restarting sertraline daily as she has d/c'd it states she will start that today. Flowsheet Date 02/08/2022 Dickey Score Blood Edema Fundus Height Fundus Units Glucose Ketones Leukocytes Nitrite Labor Signs Protein Cervic Dilation Cervic Effacement Cervic Station 39 cm Type Weight in lbs Pre/Post Dialysis Refused With clothes 160.373185689272 BP Diastolic BP Location Tested BP Systolic BP Type 70 120 sitting Fetus Heart Rate Present A 126 Fetus Movement A Yes Comments Discussed GBS positive. Decl gio IOL at this time. Followup in one week. Strict precautions reviewed. Flowsheet Date 02/16/2022 Dickey Score Blood Edema Fundus Height Fundus Units Glucose Ketones Leukocytes Nitrite Labor Signs Protein Cervic Dilation Cervic Effacement Cervic Station none 39 Type Weight in lbs Pre/Post Dialysis Refused Weight 164.39796142880 BP Diastolic BP Location Tested BP Systolic BP Type 72 108 Fetus Heart Rate Present A 145 Fetus Movement A Yes Comments IOL 02/20 900 Flowsheet Date 11/14/2022 Dickey Score Blood Edema Fundus Height Fundus Units Glucose Ketones Leukocytes Nitrite Labor Signs Protein Cervic Dilation Cervic Effacement Cervic Station Type Weight in lbs Pre/Post Dialysis Refused Weight 126.994868476380 BP Diastolic BP Location Tested BP Systolic BP Type 58 102 Fetus Heart Rate Present Fetus Movement Comments Menstrual History Last Menstrual Date Menses Monthly On Bcp Conception Prior Menses Frequency Hcg Plus Date Menarche Onset Age Delivery Information Delivery Date Delivery Type Labor Anesthesia Weeks Gestation Incision Type Labor Labor Length Hrs Delivered By Post Complications Tubal Sterilization Discharge Date Comments 2 Regional-Ep idural Kayy Sanchez CNM Discharge Information Feeding Method Contraceptive Method Maternal HG B and HCT Levels Ob Episode Information Episode Created Date Number of Fetuses Patient Bloodtype Patient rh Status Prepregnancy Weight lbs Domestic Partner Domestic Partner Phone Father Name Customer Relations Specialist Status 12/29/19 23 1 O Positive CLOSED Fetus Data First Name Last Name Admitted to NICU Weight (g) Sex Living Outcome Pediatric Complications Fetus ID Race Codes Race Delivery Type F true Full Term [id number] White Narciso Calculation Initial Narciso Date Initial Exam Date Initial Exam Provider Initial Ultrasound Date Last Menstrual Period Date Ultra Sound Weeks Gestation 07/02/2023 11/14/2022 11/14/2022 0 Eighteen To Twenty Week Narciso Update Ultra Sound Date Fundal Height At Umbil Quickening Date Ultra Sound Latest Weeks Gestation Final Narciso Confirmed By Final Narciso Confirmed Date Final Narciso Date Ultra Sound Latest Days Gestation 0 0 Pre- Flowsheet Flowsheet Date 12/28/2022 Dickey Score Blood Edema Fundus Height Fundus Units Glucose Ketones Leukocytes Nitrite Labor Signs Protein Cervic Dilation Cervic Effacement Cervic Station Type Weight in lbs Pre/Post Dialysis Refused With clothes 125.875255432230 BP Diastolic BP Location Tested BP Systolic BP Type 60 100 sitting Fetus Heart Rate Present A 140 Fetus Movement Comments IOB labs today, oriented to practice reviewed preg booklet Flowsheet Date 02/15/2023 Dickey Score Blood Edema Fundus Height Fundus Units Glucose Ketones Leukocytes Nitrite Labor Signs Protein Cervic Dilation Cervic Effacement Cervic Station Type Weight in lbs Pre/Post Dialysis Refused With clothes 132.452532407568 BP Diastolic BP Location Tested BP Systolic BP Type 62 98 sitting Fetus Heart Rate Present A 140 Fetus Movement A Yes Comments anatomy today 60% Breech ant placenta, complete Flowsheet Date 03/16/2023 Dickey Score Blood Edema Fundus Height Fundus Units Glucose Ketones Leukocytes Nitrite Labor Signs Protein Cervic Dilation Cervic Effacement Cervic Station Type Weight in lbs Pre/Post Dialysis Refused With clothes 136.987898169097 BP Diastolic BP Location Tested BP Systolic BP Type 62 L arm 100 sitting Fetus Heart Rate Present A 134 Fetus Movement A Yes Comments 3rd tri labs next visit Flowsheet Date 04/04/2023 Dickey Score Blood Edema Fundus Height Fundus Units Glucose Ketones Leukocytes Nitrite Labor Signs Protein Cervic Dilation Cervic Effacement Cervic Station 26 cm Type Weight in lbs Pre/Post Dialysis Refused Weight 142.927758790213 BP Diastolic BP Location Tested BP Systolic BP Type 68 118 Fetus Heart Rate Present A 145 Fetus Movement A Yes Comments GTT today at patient request . Return in 2 weeks for HIV/RPR and CBC. Denies questions or concerns. Strict precautions reviewed. Flowsheet Date 05/02/2023 Dickey Score Blood Edema Fundus Height Fundus Units Glucose Ketones Leukocytes Nitrite Labor Signs Protein Cervic Dilation Cervic Effacement Cervic Station none Type Weight in lbs Pre/Post Dialysis Refused Weight 145.529887262036 BP Diastolic BP Location Tested BP Systolic BP Type 60 110 Fetus Heart Rate Present A 135 Fetus Movement A Yes Comments 4d today. Complains of pelvi c pressure- belly band ordered. PTL/PIH precautions reviewed. Flowsheet Date 05/24/2023 Dickey Score Blood Edema Fundus Height Fundus Units Glucose Ketones Leukocytes Nitrite Labor Signs Protein Cervic Dilation Cervic Effacement Cervic Station none Type Weight in lbs Pre/Post Dialysis Refused With clothes 149.943450097477 BP Diastolic BP Location Tested BP Systolic BP Type 68 L arm 110 sitting Fetus Heart Rate Present A 140 Fetus Movement A Yes Comments vaginal itching and burning Diflucan eRX sureswab collected Flowsheet Date 06/06/2023 Dickey Score Blood Edema Fundus Height Fundus Units Glucose Ketones Leukocytes Nitrite Labor Signs Protein Cervic Dilation Cervic Effacement Cervic Station none 36 cm Type Weight in lbs Pre/Post Dialysis Refused Weight 152.484809318795 BP Diastolic BP Location Tested BP Systolic BP Type 66 102 Fetus Heart Rate Present A 138 Fetus Movement A Yes Comments GBS collected. Has not picke d up metronidazole yet. Is noting cramping regularly. Strict precautions reviewed with instructions of going to L&D with more than 4 per hour. Verbalizes understanding PIH precautions discussed. Flowsheet Date 06/13/2023 Dickey Score Blood Edema Fundus Height Fundus Units Glucose Ketones Leukocytes Nitrite Labor Signs Protein Cervic Dilation Cervic Effacement Cervic Station none 36 cm Type Weight in lbs Pre/Post Dialysis Refused Weight 153.279605273944 BP Diastolic BP Location Tested BP Systolic BP Type 70 98 Fetus Heart Rate Present A 136 Fetus Movement A Yes Comments GBS negative. Complains of l eft sided cramping. Is taking metronidazole now. Labor/PIH precautions reviewed. Flowsheet Date 06/21/2023 Dickey Score Blood Edema Fundus Height Fundus Units Glucose Ketones Leukocytes Nitrite Labor Signs Protein Cervic Dilation Cervic Effacement Cervic Station none 37 none none Type Weight in lbs Pre/Post Dialysis Refused With clothes 155.96638814361 BP Diastolic BP Location Tested BP Systolic BP Type 60 112 sitting Fetus Heart Rate Present A 157 Fetus Movement A Yes Comments IOL scheduled for [place] Menstrual History Last Menstrual Date Menses Monthly On Bcp Conception Prior Menses Frequency Hcg Plus Date Menarche Onset Age Genetic Screening And Infection History Question Response Note Thalassemia (Icelandic, Thai, Mediterranean, Or Background): MCV < 80 false Intellectual Disability/Autism false Personal or Family History of Congenital Heart D efect false History of Hepatitis false Muscular Dystrophy false Sickle Cell Disease Or Trait () false Patient Or Partner Has History Of Genital Herpes false Hemophilia Or Other Blood Disorders false Carlos Disease false Patient's Age Will Be 35 Years Or Older At Estim ated Date of Delivery false If Yes, Agent(s) And Strength/Dosage false Medications (including Suppl ements, Vitamins, Herbs, OTC Drugs), Illicit/Recreational Drugs, Alcohol false Other Structural Defect false Recent Travel History Outside of Country false Maternal Metabolic Disorder (eg, Type 1 Diabetes , PKU) false Jose Angel-Sachs (eg, Sabianism, Cajun, Uzbek-Malagasy) f alse Other Infection History false Emery's Chorea false Cystic Fibrosis false Recurrent Loss, Or A Stillbirth false Rash Or Viral Illness Since Last Menstrual Perio d false Live With Someone With TB Or Exposed To TB false Mental Retardation/Autism false If Yes, Was Person Tested For Fragile X? false History of HIV false Any Other Genetic History false Hemoglobinopathy Or Carrier false Prior GBS-infected child false Down Syndrome false Other Inherited Genetic Or Chromosomal Disorder false Patient Or Baby's Father Had A Child With Defects Not Listed Above false Personal or Family History o f Neural Tube Defect (Meningomyelocele, Spina Bifida, Or Anencephaly) false History Of STD, Gonorrhea, Chlamydia, HPV, Syphi lis false Delivery Information Delivery Date Delivery Type Labor Anesthesia Weeks Gestation Incision Type Labor Labor Length Hrs Delivered By Post Complications Tubal Sterilization Discharge Date Comments 4 Induce d 39.3 Pauly Monae DO Discharge Information Feeding Method Contraceptive Method Maternal HG B and HCT Levels
--- OUTSIDE RECORDS SUMMARY | 2024-05-20 04:59 | XMS_ITS | Clinical Summary ---
Author Organization [facility] Address [address] [place] [address] Care Team Providers Care [employer] Name Role Phone Marisol Graham NP Primary Care Provider + [phone] Allergies No known active allergies Medications hydrOXYzine (ATARAX) 25 mg tablet 3 Active vit 67-znve-dlksp-d guillen 27mg iron- 800 mcg-250 mg capsule [...] Contraindic ation) Varicella 06/29/2023(Deferred: Patient Ref used) Surgical History Surgery Date Site/Laterality Comments NO PAST SURGERIES Medical History Medical History Date Comments Anxiety Social History Tobacco Use Types Packs/Day Years Used Date Smoking Tobacco: Never Tobacco Cessation:Counseling Given: Not Answered AUDIT-C Answer Date Recorded Q1: How often do you have a drink containing alc ohol? Never 06/27/2023 Average Number of Drinks Not on file 024 Frequency of Binge Drinking Not on file 09/2023 [facility] [place] [facility] Occupat ional [facility] - Occupational Stress Questionnaire Answer Date Recorded Do you feel stress - tense, restless, nervous, or anxious, or unable to sleep at night because your mind is troubled all the time - these days? Only a little 02/20/2022 [place]reston Depression Scale Answer Date Recorded [place] Depression Scale Total 1 06/29/2023 The thought [...] on file Legal Sex Female 6:49 PM SLEEP TECH Gender Identity Not on file Sexual Orientation Not on file Obstetrics History Para Term AB IAB SAB Ectopic Multiple Livin g Live Births 3 2 2 1 1 0 2 2 Date Outcome GA Total Labor Labor/2nd/3rd Weight Sex Type Anes PTL Cris A1 A5 Name Clin SAB 2021 Term 39w 6d 5h 49m 4h 44m/1h 03m/0h 02m 3.37 kg (7 lb 6.9 oz) F Vag-Sp ont Epidur al N Livin g 8 9 JOANNA ,GIRL APARNA Batsheva Merida is, Lizeth on D., CNM Complications:None Delivery Location:[facility] Main [facility] ([facility]) 2023 Term 39w 3d 0h 04m 0h 04m 3.23 kg (7 lb 1.9 oz) F Vagina l Epidur al N Livin g 8 9 Debbie yn M Dexter r Ranjithin ick, Malaika yn, DO Complications:None Delivery Location:[facility] ([facility]) Comments HX anxiety Last Filed Vital Signs Vital Sign Reading Time Taken Comments Blood Pressure 92/56 06/29/2023 6:00 AM SLEEP TECH Pulse 78 06/29/2023 6:00 AM SLEEP TECH Temperature 36.8 ??C (98.2 ??F) 06/29/2023 6:00 AM CS T Respiratory Rate 16 06/29/2023 6:00 AM SLEEP TECH Oxygen Saturation 98% 06/29/2023 6:00 AM SLEEP TECH Inhaled Oxygen Concentration - - Weight 70.8 kg (156 lb) 06/27/2023 10:30 PM SLEEP TECH Height 175.3 cm (5' 9 ) 06/27/2023 10:30 PM SLEEP TECH Body Mass Index 23.04 06/27/2023 10:30 PM SLEEP TECH Plan of Treatment Health Maintenance Due Date Last Done Comments Cervical Cancer Screening 1996 Hepatitis C Screening 1996 Varicella Vaccines (1 of 2 - 13+ 2-dose series) 2009 Hepatitis B Screening 2014 Regular Well Visit/Exam 18-64 2014 Covid-19 Vaccine (2 - 2023-2 5 season) 2023 11/01/2020 Influenza Vaccine (#1) 2023 Depression Screening 06/28/2024 06/29/2023 DTaP/Tdap/Td Vaccine (2 - Td or Tdap) 02/03/2032 02/02/2022 HPV Vaccines Aged Out No longer eligi ble based on patient's age to complete this topic Pneumococcal vaccine <65 Aged Out No longer eligible based on patient's age to complete this topic Advance Directives For more information, please contact: [phone] * Full Code (Latest Code Status on [...] in case of cardiopulmonary arrest Care Teams Junior [employer] Dba Relationship Specialty Start Date End Date Marisol Graham NP [address] [place] [id number] PCP - General Nurse Practitioner 05/11/23
--- OUTSIDE RECORDS SUMMARY | 2024-05-20 04:59 | XMS_ITS | Encounter Summary ---
Author Organization [facility] Healthcare Address [address] [place] [address] Care Team Providers Care Server Service Assistant Name Role Phone Marisol Graham NP Primary Care Provider [phone] Encounter Details Date Type Department Care Team (Late st Contact Info) Description 06/27/2023 Documentation [facility] [address] [place] [address] [id number] Amanda Lundy RN Social History Tobacco Use Types Packs/Day Years Used Date Smoking Tobacco: Never AUDIT-C Answer Date Recorded Q1: How often do you have a drink containing alc ohol? Never 06/27/2023 Average Number of Drinks Not on file 024 Frequency of Binge Drinking Not on file 09/2023 [facility] [place] of Occupat ional Health - Occupational Stress Questionnaire Answer Date Recorded Do you feel stress - tense, restless, nervous, or anxious, or unable to sleep at night because your mind is troubled all the time - these days? Only a little 02/20/2022 [place] Depression Scale Answer Date Recorded [place] Depression Scale Total 1 06/29/2023 The thought of harming myself has occurred to me . Never 06/29/2023 Personal Safety Answer Date Recorded Have you ever been in or are you currently in a harmful physical or emotional relationship or is someone making you feel afraid or unsafe? Denies 06/27/2023 Comments Yes Sex and Gender Information Value Date Recorded Sex Assigned at Not on file Legal Sex Female 6:49 PM PORTER [employer]ATH Gender Identity Not on file Sexual Orientation Not on file documented as of this encounter Plan of Treatment Not on file documented as of this encounter Procedures Procedure Name Priority Date/Time Associated Diagnosis Comments RUBELLA IGG Routine 12/28/2022 documented in this encounter Results * Rubella IgG antibody Blood (12/28/2022) Rubella IgG Scribed Immune Blood Kayy Aparicio [facility] MICROBIOLOGY - G ENERAL ORDERABLES Final Result documented in this encounter Visit Diagnoses Not on filedocumented in this encounter Care Teams Server Service Assistant Relationship Specialty Start Date End Date Marisol Graham NP [address] [place] [id number] PCP - General Nurse Practitioner 05/11/23 documented as of this encounter
[2024-05-20] MEDS: ONDANSETRON INJ 4 MG/2 ML VIAL IV PUSH (06:12)
[2024-05-20 06:26] LABS: Basophils Percent Auto 0.1 % (0.2-1.2); Eosinophils Percent Auto 0.2 % (0-4.4); Hematocrit 37.4 % (37.0-47.0); Hemoglobin 12.1 g/dL (12.0-15.0); Immature Granulocyte Absolute 0.03 K/mm3 (0.00-0.031); Immature Granulocyte Percent A 0.3 % (0-0.5); Lymphocytes Absolute Auto 0.68 K/mm3 (0.9-3.2); Lymphocytes Percent Auto 6.3 % (18.3-44.2); Mean Corpuscular HGB Conc 32.4 g/dl (32-36); Mean Corpuscular Hemoglobin 27.7 pg (26-34); Mean Corpuscular Volume 85.6 fl (80-100); Mean Platelet Volume 11.1 fl (7.4-10.4); Monocytes Absolute Auto 0.4 K/mm3 (0.1-0.6); Monocytes Percent Auto 4.1 % (2.6-8.5); Neutrophils Absolute Auto 9.7 K/mm3 (1.3-6.7); Platelet Count Result 172 k/mm3 (150-375); Red Blood Count 4.37 M/mm3 (4.2-5.4); Red Cell Distribution Width 14.9 % (11.5-14.5); White Blood Count 10.8 K/mm3 (4.5-10.0)
[2024-05-20 06:34] LABS: Alanine Aminotransferase 10 U/L (6-35); Alkaline Phosphatase 58 U/L (38-126); Anion Gap 10 mmol/L (4-12); Aspartate Amino Transferase 15 U/L (14-36); Bilirubin,Total 0.4 mg/dL (0.2-1.3); Blood Urea Nitrogen 6 mg/dL (7-17); Calcium 8.7 mg/dL (8.4-10.2); Carbon Dioxide 23 mmol/L (22-30); Chloride 104 mmol/L (98-107); Estimated CRCL calculation 139 ml/min; Estimated Glomerular Filt Rate > 60; Glucose 109 mg/dL (65-110); Lipase 84 U/L (23-300); Potassium 4.2 mmol/L (3.4-5.0); Sodium 137 mmol/L (137-145)
[2024-05-20 06:49] VITALS: BP 105/54; PULSE 82; RESP 17; O2SAT 100
[2024-05-20 07:23] VITALS: BP 113/56; PULSE 72; RESP 20; O2SAT 100
[2024-05-20 07:25] LABS: BEDSIDEPREGUCG Positive (Negative)
[2024-05-20 07:34] LABS: Add Urine Microscopic? YES; Appearance Urine Cloudy (Clear); Bacteria Urine 2+ /hpf; Bilirubin Urine Negative (Negative); Blood Urine Negative (Negative); Color Urine Yellow (Yellow); Glucose Urine UA Negative (Negative); Ketones Urine Trace mg/dL (Negative); Leukocyte Esterase Ur 2+ LEU/UL (Negative); Nitrate Urine Negative (Negative); Non Pathogenic Casts 0-2; Protein Urine Trace mg/dL (Negative); RBC Urine 0-2 /hpf (0-2); Specific Grav Ur 1.023 (1.001-1.035); Squamous Epithelial Cell Urine Moderate /hpf (Few); WBC Urine 21-50 /hpf (0-3); pH Urine 6.5 (5.0-9.0)
--- NOTE | 2024-05-20 07:34 | ED.GENADULT ---
HPI - General Adult General Chief complaint: Nausea/Vomiting/Diarrhea Stated complaint: 11 wks preg, N/V, abd pain, chills Time Seen by Provider: 05/20/24 06:57 History of Present Illness HPI narrative: 28-year-old female that is 11 weeks presenting to the emergency department for evaluation for persistent nausea vomiting diarrhea and body aches. Patient states that her did have a GI illness and then a few days later she developed the identical symptoms. Patient states she is 11 weeks and has not yet had an ultrasound with this . [facility]. Related Data Home Medications ?Medication ?Instructions ?Recorded ?Confirmed ?Last Taken ?Type prenat.vits,azul,vhc-rxuw-ndusa 1 tablet PO DAILY 07/21/21 Unknown History sertraline 100 mg tablet 100 mg PO DAILY 07/21/21 Unknown History Allergies Allergy/AdvReac Type Severity Reaction Status Date / Time No Known Allergies Allergy Verified 05/20/24 04:57 Review of Systems Review of Systems: All systems reviewed & are unremarkable except as noted in HPI and below PMFSH Past Medical History Medical History (Updated 05/20/24 @ 09:06 by Harley Lawrence MD) History of miscarriage 10/2019 Migraine Headache Anxiety Surgical History Surgical History (Updated 07/21/21 @ 14:03 by Holly Magana MA) [place] teeth removed Social History Social History (Updated 07/21/21 @ 14:04 by Holly Magana MA) Smoking status: Never smoker (however, vapes ) Tobacco type: e-cigarettes/vaping Alcohol intake: former Substance use: never Exam Narrative: APPEARANCE: Ill-appearing HEAD: normocephalic, atraumatic. EYES: PERRLA/EOMI, conjunctivae clear. NOSE: Normal no drainage EARS:TMS clear with good light reflex. THROAT: Pharynx clear, no exudate. NECK: Supple. No adenopathy, no masses. RESPIRATORY: Airway patent, respirations nonlabored. Clear to auscultation bilaterally, no rales, rhonchi, wheezing. CARDIOVASCULAR: Regular rate and rhythm without murmurs rubs or gallops. ABDOMINAL: Soft, nontender, nondistended, normal bowel sounds MUSCULOSKELETAL: Moves all extremities. Strength/ROM intact, No edema, No calf tenderness. NEURO: Alert. Cranial nerves II through XII intact. Grossly intact SKIN: Warm, dry. Normal Color Course Vital Signs Vital signs: Vital Signs Temperature 97.2 F L 05/20/24 04:59 Pulse Rate 101 H 05/20/24 04:59 Respiratory Rate 20 05/20/24 04:59 Blood Pressure 102/64 05/20/24 04:59 Pulse Oximetry 99 05/20/24 04:59 Oxygen Delivery Room Air 05/20/24 04:59 Temperature 97.2 F L 05/20/24 04:59 Pulse Rate 80 05/20/24 08:41 Respiratory Rate 16 05/20/24 08:41 Blood Pressure 102/43 L 05/20/24 08:41 Pulse Oximetry 100 05/20/24 08:41 Oxygen Delivery Room Air 05/20/24 04:59 Medical Decision Making MDM Narrative Medical decision making narrative: 28-year-old female that is approximately 11 weeks to the presented emergency department for evaluation for nausea vomiting diarrhea and diffuse abdominal pain. Patient is afebrile but does have a leukocytosis of 10.8 which is normal during . Patient has a normal hemoglobin. No significant abnormalities on her CMP with a creatinine of 0.5, normal AST ALT alk-phos and lipase. UA was cloudy with trace ketones, leukocyte esterase positive with high white blood cells and +2 bacteria. Patient will be started on Macrobid. Ultrasound did show SL IUP with an EGA of 12 weeks, 0 days (EDC by current ultrasound of 12/02/2024). On re-evaluation patient states she is still having some nausea but is resting comfortably. Patient was treated with a L of IV fluid and IV Zofran. Patient will also be treated with IV Reglan and started on Macrobid for her urinary tract infection. Patient does have follow-up in May 28 with [facility]. All questions concerns were addressed patient was comfortable plan for discharge and close follow-up. Differential Diagnosis Differential Diagnosis: Ectopic , urinary tract infection, COVID, influenza, RSV, gastroenteritis, dehydration, colitis, diverticulitis Vital Signs Vital Signs: Vital Signs Temperature 97.2 F L 05/20/24 04:59 Pulse Rate 101 H 05/20/24 04:59 Respiratory Rate 20 05/20/24 04:59 Blood Pressure 102/64 05/20/24 04:59 Pulse Oximetry 99 01/28/25 04:59 Oxygen Delivery Room Air 05/20/24 04:59 Temperature 97.2 F L 05/20/24 04:59 Pulse Rate 80 05/20/24 08:41 Respiratory Rate 16 05/20/24 08:41 Blood Pressure 102/43 L 05/20/24 08:41 Pulse Oximetry 100 05/20/24 08:41 Oxygen Delivery Room Air 05/20/24 04:59 Lab Data Lab results reviewed: Yes I reviewed the patient's lab results. 05/20/24 06:11 05/20/24 06:11 Labs: Lab Results 05/20/24 05/20/24 05/20/24 Range/Units 06:11 07:20 07:23 WBC 10.8 H (4.5-10.0) K/mm3 RBC 4.37 (4.2-5.4) M/mm3 Hgb 12.1 (12.0-15.0) g/dL Hct 37.4 (37.0-47.0) % MCV 85.6 (80-100) fl MCH 27.7 (26-34) pg MCHC 32.4 (32-36) g/dl RDW 14.9 H (11.5-14.5) % Plt Count 172 (150-375) k/mm3 MPV 11.1 H (7.4-10.4) fl Immature Gran % (Auto) 0.3 (0-0.5) % Neut % (Auto) 89.0 H (45.5-73.1) % Lymph % (Auto) 6.3 L (18.3-44.2) % [place] % (Auto) 4.1 (2.6-8.5) % Eos % (Auto) 0.2 (0-4.4) % Baso % (Auto) 0.1 L (0.2-1.2) % Lymph # (Auto) 0.68 L (0.9-3.2) K/mm3 [place] # (Auto) 0.4 (0.1-0.6) K/mm3 Eos # (Auto) 0.0 (0-0.3) K/mm3 Baso # (Auto) 0.0 (0.0-0.1) K/mm3 Abs Immat Gran (auto) 0.03 (0.00-0.031) K/mm3 Absolute Neuts (auto) 9.7 H (1.3-6.7) K/mm3 Absolute Nucleated RBC 0.000 (0.0-0.012) K/mm3 Nucleated RBC % 0.0 (0.0-0.2) % Sodium 137 (137-145) mmol/L Potassium 4.2 (3.4-5.0) mmol/L Chloride 104 (98-107) mmol/L Carbon Dioxide 23 (22-30) mmol/L Anion Gap 10 (4-12) mmol/L BUN 6 L (7-17) mg/dL Creatinine 0.45 L (0.7-1.0) mg/dL Estim Creat Clear Calc 139 ml/min Estimated GFR > 60 (59 - ) Glucose 109 (65-110) mg/dL Calcium 8.7 (8.4-10.2) mg/dL Total Bilirubin 0.4 (0.2-1.3) mg/dL AST 15 (14-36) U/L ALT 10 (6-35) U/L Alkaline Phosphatase 58 (38-126) U/L Total Protein 7.0 (6.3-8.2) g/dL Albumin 4.0 (3.5-5.1) g/dL Lipase 84 (23-300) U/L Urine Color Yellow (Yellow) Urine Appearance Cloudy H (Clear) Urine pH 6.5 (5.0-9.0) Ur Specific [place] 1.023 (1.001-1.035) Urine Protein Trace (Negative) mg/dL Urine Glucose (UA) Negative (Negative) mg/dL Urine Ketones Trace H (Negative) mg/dL Ur Blood (Man) Negative (Negative) Urine Nitrate Negative (Negative) Urine Bilirubin Negative (Negative) Urine Urobilinogen 1.0 (<2.0) mg/dL Leukocyte Esterase Rfl 2+ H (Negative) RAFY/UL Urine RBC 0-2 (0-2) /hpf Urine WBC 21-50 H (0-3) /hpf Ur Squamous Epith Cells Moderate (Few) /hpf Urine Bacteria 2+ H /hpf Urine Casts 0-2 POC Urine HCG, Qual Positive (Negative) Imaging Data Radiologist's impression: Impressions Ultrasound 05/20/24 08:20 IMPRESSION: 1. SL IUP with an EGA of 12 weeks, 0 days (EDC by current ultrasound of 12/02/2024). Discharge Plan Discharge Clinical Impression: Nausea vomiting and diarrhea, Abnormal urinalysis Patient Disposition: Home, Self-Care Condition: Stable Instructions: Antibiotic Form, Clear Liquid Diet (ED), Acute Nausea and Vomiting (ED), Abdominal Pain (ED) Additional Instructions: Clear liquid diet for the next 1-3 days, Zofran as needed for nausea control. Antibiotic as directed for your urinary tract infection. Continue to have close follow-up with [facility]. If you have any worsening symptoms then please call or return to the emergency department. Patient Language: Setswana Prescriptions: New ondansetron 4 mg tablet,disintegrating 4 mg PO Q8H PRN (Reason: nausea and vomiting) Qty: 14 0RF nitrofurantoin monohyd/m-cryst [Macrobid] 100 mg capsule 100 mg PO Q12H 5 Days Qty: 10 0RF Rx Instructions: must administer with a meal/food No Action sertraline 100 mg tablet 100 mg PO DAILY prenat.vits,azul,fqw-rdup-xxjkm Tablet 1 tablet PO DAILY Follow-up/Referrals: UNKNOWN,DOCTOR [Primary Care Provider] -
--- OUTSIDE RECORDS SUMMARY | 2024-05-20 07:38 | XMS_ITS | Clinical Summary ---
Author Organization [facility] Address [address] [place] [address] [place] [address] Care Team Providers Care Senior Dynamics Crm Developer Name Role Phone Marisol Grhaam GLADIS Primary Care Provider [phone] Allergies No known active allergies Medications MV & Min w/FA-DHA ( GUMMIES OR) Active ALPRAZolam (XANAX) 0.25 MG tabletIndication s:Panic attacks,Generali zed anxiety disorder TAKE 1 TO 2 TABLETS(0.2 5 TO 0.5 MG) BY MOUTH TWICE DAILY NEEDED FOR SLEEP 60 tablet 1 12/10/2023 Active escitalopram (LEXAPRO) 10 MG tabletIndication s:Moderate episode of recurrent major depressive disorder ([facility]/HCC),General ized anxiety disorder TAKE 1 TABLET(10 [...] Date Resolved Date 31 weeks gestation of ([facility]) 05/01/2023 02/25/2024 20 weeks gestation of ([facility]) 02/14/2023 02/25/2024 Acne vulgaris 07/05/2020 03/08/2022 Benign nevus 07/05/2020 03/08/2022 Close exposure to COVID-19 virus 05/19/2020 07/27/2020 Cough 05/19/2020 07/27/2020 Acute nonintractable headach e, unspecified headache type 05/19/2020 07/27/2020 Other fatigue 05/19/2020 07/27/2020 Fever, unspecified fever cause 05/19/2020 07/27/2020 Vaginal bleeding in pregnanc y, first trimester ([facility]) 12/12/2019 07/27/2020 SAB (spontaneous ) ([facility]) 12/12/2019 07/27/2020 Anxiety 11/03/2019 05/01/2023 Amenorrhea 11/03/2019 07/27/2020 Less than 8 weeks gestation of ([facility]) 11/03/2019 12/12/2019 Encounters Date Type Department Care Team Description 03/28/2024 Telephone [facility] Medical [facility] Family & Internal Medicine [address] [phone] Marisol Graham FNP Medication 02/25/2024 1:00 PM VERIFYING MACHINE OPERATOR Office Visit [facility] Family [facility] Internal Medicine [address] [phone] Marisol Graham, GLADIS Perspiration (Patient c/o night [...] Sex Assigned at Female 04/30/2023 8:26 AM VERIFYING MACHINE OPERATOR Legal Sex Female 2:07 PM CDT Gender Identity Female 04/30/2023 8:26 AM VERIFYING MACHINE OPERATOR Sexual Orientation Straight 04/30/2023 8: 26 AM VERIFYING MACHINE OPERATOR Last Filed Vital Signs Vital Sign Reading Time Taken Comments Blood Pressure 97/62 02/25/2024 1:08 PM VERIFYING MACHINE OPERATOR Pulse 72 02/25/2024 1:08 PM VERIFYING MACHINE OPERATOR Temperature 37.1 ??C (98.8 ??F) 02/25/2024 1:08 PM CS T Respiratory Rate 16 02/25/2024 1:08 PM VERIFYING MACHINE OPERATOR Oxygen Saturation 100% 02/25/2024 1:08 PM VERIFYING MACHINE OPERATOR Inhaled Oxygen Concentration - - Weight 57.6 kg (126 lb 14.4 oz) 02/25/2024 1:08 PM VERIFYING MACHINE OPERATOR Height 175.3 cm (5' 9 ) 02/25/2024 1:08 PM VERIFYING MACHINE OPERATOR Body Mass Index 18.74 02/25/2024 1:08 PM VERIFYING MACHINE OPERATOR Plan of Treatment Health Maintenance Due Date Last Done Comments Cervical Cancer Screening Pa p Smear (Age 21 to 29) Every 3 Years 1996 Cervical Cancer Screening 1996 Annual Physical 08/27/1999 Hepatitis B Vaccines (1 of 3 - 19+ 3-dose series) 08/27/2015 PHQ-2 ([facility] [place]) 04/23/2024 05/01/2023 PHQ-2 ([facility] [place]) 05/01/2024 05/01/2023 COVID-19 Vaccine (2 - 2023-2 [...] W CONF Routine 02/25/2024 1: 31 PM VERIFYING MACHINE OPERATOR Panic attacks High risk medication use TEST URINE Routine 02/25/2024 Amenorrhea from Last 3 Months Results * (ABNORMAL) MG/PCCL UDS W CONF (02/25/2024 1:31 PM VERIFYING MACHINE OPERATOR) RESULT SUMMARY [facility] Comment: ?Prescribed ?Prescribed ?Not Prescribed ?Consistent ?Inconsistent ?Inconsistent ?Alprazolam ? PRESCRIBED DRUG 1 (U) Alprazolam [facility] FENTANY[place] SCREEN (U) NEGATIVE <0.5 ng/mL [facility] [place] MORPHINE (U) NEGATIVE <10 ng/mL [facility] [place] DESMETHYLTRAMADOL (U) NEGATIVE <100 ng/mL [facility] [place] TRAMADOL (U) NEGATIVE <100 ng/mL [facility] [place] TRAMADOL COMMENTS [facility] Comment:See LDT Notes AMPHETAMINES PM NEGATIVE <500 ng/mL [facility] BARBITURATES PM (U) NEGATIVE <300 ng/mL [facility] BENZODIAZEPINES PM (U) NEGATIVE <100 ng/mL [facility] [place] BENZODIAZEPINES PM MEDMATCH (U) INCONSISTENT( A) [facility] [place] COCAINE METABOLITE PM (U) NEGATIVE <150 ng/mL [facility] [place] MARIJUANA METABOLITE PM (U) NEGATIVE <20 ng/mL [facility] [place] METHADONE PM (U) NEGATIVE <100 ng/mL [facility] [place] OPIATES PM (U) NEGATIVE <100 ng/mL [facility] [place] OXYCODONE PM (U) NEGATIVE <100 ng/mL [facility] [place] CREATININE RANDOM (U) 53.4 > or = 20.0 mg/dL [facility] pH PM (U) 5.7 4.5 - 9.0 [facility] [place] OXIDANT NEGATIVE <200 mcg/mL [facility] NOTE [facility] Comment: This drug testing is for medical treatment only. Analysis was performed as non-forensic testing and these results should be used only by healthcare providers to render diagnosis or treatment, or to monitor progress of medical conditions. LDT Notes: Confirmation tests were developed and their analytical performance characteristics have been determined by [facility]. It has not been cleared or approved by the FDA. This assay has been validated pursuant to the CLIA regulations and is used for clinical purposes. medMATCH(R) enables providers to identify if drug use is consistent or inconsistent with a corresponding prescribed medication(s) list. Healthcare Providers needing Interpretation assistance, please contact us at [phone] ( ) M-F, 8am to 10pm EST URINE SPECIMEN / Unknown 02/25/2024 1:31 PM VERIFYING MACHINE OPERATOR 02/26/2024 1:47 AM VERIFYING MACHINE OPERATOR Narrative Resulting Agency Comment Performing Organization Information: ?Site ID: ?Name: [facility] ?Address: [address] [place] [address] ?Director: Júinor Farah ?Site ID: [place] ?Name: [facility] ?Address: [address] [place] [address] ?Director: Ashley Archer MD Marisol Rauschsteph [facility] URINE ORDERABLES Final Result Performing Organization Address City/[facility] Co de Phone Number [facility] [address] [place] [address], [facility] [place] [address] [place] [address] * TEST URINE (02/25/2024) URINE HCG TEST NEGATIVE NEGATIVE [facility] Internal Control: VALID VALID [facility] URINE SPECIMEN FROM [facility] / Unknown 02/25/2024 Marisol Grav[facility]zer [facility] URINE ORDERABLES Final Result Performing Organization Address [facility] Co de Phone Number [facility] [address] [place] [address], from Last 3 Months Insurance [facility] MEDICAID Care Teams Senior Dynamics Crm Developer Relationship Specialty Start Date End Date Marisol Graham FNP [address] [place] [id number] PCP - General Nurse Practitioner Family 10/31/19
--- OUTSIDE RECORDS SUMMARY | 2024-05-20 07:38 | XMS_ITS | Referral Summary ---
Author Organization [facility] Address [address] [place] [address] Care Team Providers Care Lead Maintenance Technician Name Role Phone Marisol Graham NP Primary Care Provider [phone] Allergies No known active allergies Medications hydrOXYzine (ATARAX) 25 mg tablet 3 Active vit 26-xrnl-sqlmj-d guillen 27mg iron- 800 mcg-250 mg capsule [...] of Binge Drinking Not on file 09/2023 [facility] of Occupat ional Health - Occupational Stress Questionnaire Answer Date Recorded Do you feel stress - tense, restless, nervous, or anxious, or unable to sleep at night because your mind is troubled all the time - these days? Only a little 02/20/2022 [place] Depression Scale Answer Date Recorded [place] Depression Scale Total 1 06/29/2023 The thought [...] on file Legal Sex Female 6:49 PM ADHESIVE BANDAGE MACHINE OPERATOR Gender Identity Not on file Sexual Orientation Not on file Last Filed Vital Signs Vital Sign Reading Time Taken Comments Blood Pressure 92/56 06/29/2023 6:00 AM ADHESIVE BANDAGE MACHINE OPERATOR Pulse 78 06/29/2023 6:00 AM ADHESIVE BANDAGE MACHINE OPERATOR Temperature 36.8 ??C (98.2 ??F) 06/29/2023 6:00 AM CS T Respiratory Rate 16 06/29/2023 6:00 AM ADHESIVE BANDAGE MACHINE OPERATOR Oxygen Saturation 98% 06/29/2023 6:00 AM ADHESIVE BANDAGE MACHINE OPERATOR Inhaled Oxygen Concentration - - Weight 70.8 kg (156 lb) 06/27/2023 10:30 PM ADHESIVE BANDAGE MACHINE OPERATOR Height 175.3 cm (5' 9 ) 06/27/2023 10:30 PM ADHESIVE BANDAGE MACHINE OPERATOR Body Mass Index 23.04 06/27/2023 10:30 PM ADHESIVE BANDAGE MACHINE OPERATOR Plan of Treatment Not on file Advance Directives For more information, please contact: [phone] * Full Code (Latest Code Status on [...] in case of cardiopulmonary arrest Care Teams Lead Maintenance Technician Relationship Specialty Start Date End Date Marisol Graham NP [address] [place] [phone] PCP - General Nurse Practitioner 05/11/23
--- OUTSIDE RECORDS SUMMARY | 2024-05-20 07:38 | XMS_ITS | Patient Health Record ---
[facility] Organization [facility] Address [address] [place] [address] Care Team Providers Care Harnessmaker Apprentice Name Role Phone Chintan Rousseau Primary Care Provider [phone] Allergies No Known Allergies Reason For Referral No Information Medications Medication SIG (Take, Route, Frequency, Duration) Notes Start Date End Date Status hydrOXYzine HCl 25 MG 1 tablet at bedtim e as needed Orally every 6 hrs Active ALPRAZolam 0.5 MG 1-2 tablets as neede d Orally Twice a day for 30 days 09/26/2022 Not-Taking busPIRone HCl 15 MG 1 tablet Orally thre e times per day for 30 days 07/06/2022 Not-Taking buPROPion HCl ER (XL) 300 MG TAKE 1 TABLET BY MOUTH ONCE A DAY IN THE MORNING FOR 30 DAYS Orally Once a day for 30 days Not-Taking Social History Tobacco Use: Social History Observation Description Date Details (start date - stop date) Unknown Dont use, Tobacco Use/Smoking Question Answer Notes Are you a Uses tobacco in other forms Additional Findings: Tobacco User e-Cigarette Problems Problem Type SNOMED Code ICD Code Onset Dates Problem Status W/U Status Risk Notes Problem Tobacco user (713970776) Nicotine dependence, unspecified, uncomplicated (F17.200) Active confirmed Problem Depression (709866190) Depression (F32.9) Active confirmed Problem Anxiety (53928770) Anxiety (F41.9) Active confirmed Plan Of Treatment No Information Insurance Providers Payer Name Payer Address Payer Phone Subscriber Number Group Number Insured Name Patient Relationship to Insured Coverage Start Date Coverage End Date [address] [address] [id number] 1 Aparna Vergara Self - patient is the insured 3 MEDICAID [address] [place] [address] [id number] Aparna Vergara Self - patient is the insured 3 [facility] [id number] [address] [id number] 1 Aparna Vergara Self - patient is the insured 3 Medical (General) History Surgical History Surgery Date(Month/Year) Hospitalization History Reason Date(Month/Year) Child 02/2022
--- OUTSIDE RECORDS SUMMARY | 2024-05-20 07:39 | XMS_ITS | Encounter Summary ---
Author Organization [facility] Address [address] [place] [address] Care Team Providers Care Film Processor Name Role Phone Marisol Graham NP Primary Care Provider [phone] Encounter Details Date Type Department Care Team (Late st Contact Info) Description 06/27/2023 Documentation [facility] [address] [place] [address] [phone] Amanda Lundy RN Social History Tobacco Use Types Packs/Day Years Used Date Smoking Tobacco: Never AUDIT-C Answer Date Recorded Q1: How often do you have a drink containing alc ohol? Never 06/27/2023 Average Number of Drinks Not on file 024 Frequency of Binge Drinking Not on file 09/2023 [facility] of Occupat ional Health - Occupational Stress Questionnaire Answer Date Recorded Do you feel stress - tense, restless, nervous, or anxious, or unable to sleep at night because your mind is troubled all the time - these days? Only a little 02/20/2022 [place] Depression Scale Answer Date Recorded [place] Depression Scale Total 1 06/29/2023 The thought [...] on file Legal Sex Female 6:49 PM INSTRUMENT WORKER Gender Identity Not on file Sexual Orientation Not on file documented as of this encounter Plan of Treatment Not on file documented as of this encounter Procedures Procedure Name Priority Date/Time Associated Diagnosis Comments RUBELLA IGG Routine 12/28/2022 documented in this encounter Results * Rubella IgG antibody Blood (12/28/2022) Rubella IgG Scribed Immune Blood Kayy Aparicio [facility] MICROBIOLOGY - G ENERAL ORDERABLES Final Result documented in this encounter Visit Diagnoses Not on filedocumented in this encounter Care Teams Film Processor Relationship Specialty Start Date End Date Marisol Graham NP [address] [place] [id number] PCP - General Nurse Practitioner 05/11/23 documented as of this encounter
--- OUTSIDE RECORDS SUMMARY | 2024-05-20 07:39 | XMS_ITS | Clinical Summary ---
Author Organization [facility] Address [address] [place] [address] Care Team Providers Care Pharmacist Aide Name Role Phone Marisol Graham NP Primary Care Provider + [phone] Allergies No known active allergies Medications hydrOXYzine (ATARAX) 25 mg tablet 3 Active vit 99-uszd-tlfma-d guillen 27mg iron- 800 mcg-250 mg capsule [...] of Binge Drinking Not on file 09/2023 [facility] [place] of Occupat ional Health - Occupational Stress Questionnaire Answer Date Recorded Do you feel stress - tense, restless, nervous, or anxious, or unable to sleep at night because your mind is troubled all the time - these days? Only a little 02/20/2022 [place] Depression Scale Answer Date Recorded [place] Depression Scale Total 1 06/29/2023 The thought [...] on file Legal Sex Female 6:49 PM PATIENT SUPPORT TECH Gender Identity Not on file Sexual [...] is, Lizeth on D., CNM Complications:None Delivery Location:[facility] ([facility]) 2023 Term 39w 3d 0h 04m 0h 04m 3.23 kg (7 lb 1.9 oz) F Vagina l Epidur al N Livin g 8 9 Debbie yn M Dexter r Ranjithin ick, Malaika yn, DO Complications:None Delivery Location:[facility] ([facility]) Comments HX anxiety Last Filed Vital Signs Vital Sign Reading Time Taken Comments Blood Pressure 92/56 06/29/2023 6:00 AM PATIENT SUPPORT TECH Pulse 78 06/29/2023 6:00 AM PATIENT SUPPORT TECH Temperature 36.8 ??C (98.2 ??F) 06/29/2023 6:00 AM CS T Respiratory Rate 16 06/29/2023 6:00 AM PATIENT SUPPORT TECH Oxygen Saturation 98% 06/29/2023 6:00 AM PATIENT SUPPORT TECH Inhaled Oxygen Concentration - - Weight 70.8 kg (156 lb) 06/27/2023 10:30 PM PATIENT SUPPORT TECH Height 175.3 cm (5' 9 ) 06/27/2023 10:30 PM PATIENT SUPPORT TECH Body Mass Index 23.04 06/27/2023 10:30 PM PATIENT SUPPORT TECH Plan of Treatment Health Maintenance Due [...] Advance Directives For more information, please contact: [phone] * Full Code (Latest Code Status on [...] in case of cardiopulmonary arrest Care Teams Pharmacist Aide Relationship Specialty Start Date End Date Marisol Graham NP [address] [place] [id number] PCP - General Nurse Practitioner 05/11/23
[2024-05-20] MEDS: PANTOPRAZOLE SODIUM IV 40 MG VIAL IV PUSH (07:42)
[2024-05-20] MEDS: FAMOTIDINE 20 MG/2 ML VIAL IV PUSH (07:43)
[2024-05-20] MEDS: SODIUM CHLORIDE 0.9% IV 1,000 ML 999 ML IV CONT (07:43)
[2024-05-20] MEDS: ACETAMINOPHEN 500 MG TABLET 1000 MG PO (07:49)
[2024-05-20 08:41] VITALS: BP 102/43; PULSE 80; RESP 16; O2SAT 100
[2024-05-20] MEDS: METOCLOPRAMIDE HCL INJ 10 MG/2 ML VIAL IV PUSH (09:14)
[2024-05-20] MEDS: NITROFURANTOIN MONOHYD MACROCR 100 MG CAP PO (09:15)
== END 2024-05-20 09:27 | disposition home or self-care (01) ==
PROVIDERS: Student in an Organized Health Care Education/Training Program; Emergency Provider Emergency Medicine
DX: O21.0 Mild hyperemesis gravidarum (principal); R19.7 Diarrhea, unspecified; R82.998 Other abnormal findings in urine; Z3A.11 11 weeks gestation of pregnancy
CPT/HCPCS: 36415; 76801; 80053; 81001; 81025; 83690; 85025; 96361; 96374; 96375; 99284; A9270; J2405; J2470; J2765; J7030

== ENCOUNTER 2025-04-06 10:01 | Emergency (ER) | payer BC, SELFPAY ==
[2025-04-06 10:31] VITALS: BP 100/64; PULSE 112; RESP 17; TEMP 36.6; O2SAT 100
--- NOTE | 2025-04-06 11:26 | ED_ITS ---
HPI - Nausea/Vomiting/Diarrhea General Chief complaint: Nausea/Vomiting/Diarrhea Stated complaint: 11 weeks , n/v Time Seen by Provider: 04/06/25 10:39 History of Present Illness HPI Narrative: 21-year-old female, , is 12 weeks presents to the ER complaining of nausea, and diarrhea symptoms. Endorses epigastric pain, headache, his T to his fevers. His abdominal pain. Denies vaginal bleeding. Related Data Home Medications ?Medication ?Instructions ?Recorded ?Confirmed ?Last Taken ?Type prenat.vits,azul,wsm-mqoh-kldtm 1 tablet PO DAILY 07/21 Unknown History sertraline 100 mg tablet 100 mg PO DAILY 07/21/21 Un known History Allergies Allergy/AdvReac Type Severity Reaction Status Date / Time No Known Allergies Allergy Verified 04/06/25 10:30 Review of Systems 2 Review of Systems: All systems reviewed & are unremarkable except as noted in HPI and below PMFSH Past Medical History Medical History History of miscarriage 10/2019 Migraine Headache Anxiety Surgical History Surgical History [place] teeth removed Social History Social History Smoking status: Never smoker (however, vapes ) Tobacco type: e-cigarettes/vaping Alcohol intake: former Substance use: never Exam 2 Const: General: cooperative, no acute distress, alert and awake Resp: Effort & Inspection: normal respiratory effort and able to speak in complete sentences Auscultation: clear to auscultation bilaterally Cardio: Rate: regular rate Rhythm: regular rhythm GI: Auscultation: normal bowel sounds Other: Midsternal tenderness Skin: General skin exam: normal color and no rashes or lesions noted Neuro: General: patient oriented x3 and moves all extremities Extrem: General: normal to inspection, full ROM and capillary refill normal Psych: Appearance: grossly normal and well kempt Course Vital Signs Vital signs: Vital Signs Temperature 36.6 C 04/06/25 10:31 Pulse Rate 112 H 04/06/25 10:31 Respiratory Rate 17 04/06/25 10:31 Blood Pressure 100/64 04/06/25 10:31 Pulse Oximetry 100 12/15/25 10:31 Oxygen Delivery Room Air 04/06/25 10:31 Temperature 36.6 C 04/06/25 10:31 Pulse Rate 112 H 04/06/25 10:31 Respiratory Rate 17 04/06/25 10:31 Blood Pressure 100/64 04/06/25 10:31 Pulse Oximetry 100 04/06/25 10:31 Oxygen Delivery Room Air 04/06/25 10:31 MDM MDM Narrative Medical decision making narrative: In summary: 29-year-old female who is currently 12 weeks she presented the ER complaining of vomiting since yesterday. Lab work largely unremarkable. Urine shows evidence of infection. Patient was given 1 L of fluid, antiemetics. Was able to tolerate fluids. Plan is to discharge patient home with Keflex, follow-up with OBGYN. Differential Diagnosis Differential Diagnosis: acute cystitis, vomiting affecting , dehydration Lab Data 04/06/25 12:03 04/06/25 12:03 Labs: Lab Results 04/06/25 04/06/25 Range/Units 12:03 12:07 WBC 13.8 H (4.5-10.0) K/mm3 RBC 4.56 (4.2-5.4) M/mm3 Hgb 13.7 (12.0-15.0) g/dL Hct 40.9 (37.0-47.0) % MCV 89.7 (80-100) fl MCH 30.0 (26-34) pg MCHC 33.5 (32-36) g/dl RDW 12.6 (11.5-14.5) % Plt Count 216 (150-375) k/mm3 MPV 10.7 H (7.4-10.4) fl Immature Gran % (Auto) 0.4 (0-0.5) % Neut % (Auto) 89.9 H (45.5-73.1) % Lymph % (Auto) 7.1 L (18.3-44.2) % [place] % (Auto) 2.5 L (2.6-8.5) % Eos % (Auto) 0.0 (0-4.4) % Baso % (Auto) 0.1 L (0.2-1.2) % Lymph # (Auto) 0.97 (0.9-3.2) K/mm3 [place] # (Auto) 0.4 (0.1-0.6) K/mm3 Eos # (Auto) 0.0 (0-0.3) K/mm3 Baso # (Auto) 0.0 (0.0-0.1) K/mm3 Abs Immat Gran (auto) 0.05 H (0.00-0.031) K/mm3 Absolute Neuts (auto) 12.4 H (1.3-6.7) K/mm3 Absolute Nucleated RBC 0.000 (0.0-0.012) K/mm3 Nucleated RBC % 0.0 (0.0-0.2) % Sodium 136 L (137-145) mmol/L Potassium 3.8 (3.4-5.0) mmol/L Chloride 104 (98-107) mmol/L Carbon Dioxide 25 (22-30) mmol/L Anion Gap 7 (4-12) mmol/L BUN 7 (7-17) mg/dL Creatinine 0.52 L (0.7-1.0) mg/dL Estim Creat Clear Calc 131 ml/min Estimated GFR > 60 (59 - ) Glucose 101 (65-110) mg/dL Calcium 9.6 (8.4-10.2) mg/dL Total Bilirubin 0.8 (0.2-1.3) mg/dL AST 21 (14-36) U/L ALT 18 (6-35) U/L Alkaline Phosphatase 72 (38-126) U/L Total Protein 8.5 H (6.3-8.2) g/dL Albumin 4.7 (3.5-5.1) g/dL Lipase 61 (23-300) U/L Beta HCG, Quant 900675.00 mIU/ML Urine Color Yellow (Yellow) Urine Appearance Cloudy H (Clear) Urine pH 7.0 (5.0-9.0) Ur Specific [place] 1.027 (1.001-1.035) Urine Protein 1+ H (Negative) mg/dL Urine Glucose (UA) Negative (Negative) mg/dL Urine Ketones Trace H (Negative) mg/dL Ur Blood (Man) Negative (Negative) Urine Nitrate Negative (Negative) Urine Bilirubin Negative (Negative) Urine Urobilinogen 1.0 (<2.0) mg/dL Leukocyte Esterase Rfl 3+ H (Negative) RAFY/UL Urine RBC 0-2 (0-2) /hpf Urine WBC >100 H (0-3) /hpf Ur Squamous Epith Cells Many H (Few) /hpf Urine Bacteria 4+ H /hpf Urine Casts 0-2 Discharge Plan Discharge Clinical Impression: Vomiting affecting Acute cystitis Qualifiers: Hematuria presence: without hematuria Qualified Code(s): N30.00 - Acute cystitis without hematuria Patient Disposition: Home Condition: Stable Instructions: Antibiotic Form Patient Language: Syriac Prescriptions: New cephalexin 500 mg capsule 500 mg PO Q6H Qty: 28 0RF ondansetron 4 mg tablet,disintegrating 4 mg PO Q8H PRN (Reason: nausea and vomiting) Qty: 14 0RF No Action sertraline 100 mg tablet 100 mg PO DAILY prenat.vits,azul,fex-vslb-vmcyz Tablet 1 tablet PO DAILY ondansetron 4 mg tablet,disintegrating 4 mg PO Q8H PRN (Reason: nausea and vomiting) Qty: 14 0RF nitrofurantoin monohyd/m-cryst [Macrobid] 100 mg capsule 100 mg PO Q12H 5 Days Qty: 10 0RF Rx Instructions: must administer with a meal/food Follow-up/Referrals: Stephen,Marisol [Other] Time of Disposition: 13:24
[2025-04-06] MEDS: SODIUM CHLORIDE 0.9% IV 1,000 ML 999 ML IV CONT (12:04)
[2025-04-06 12:17] LABS: Hematocrit 40.9 % (37.0-47.0); Hemoglobin 13.7 g/dL (12.0-15.0); Immature Granulocyte Percent A 0.4 % (0-0.5); Lymphocytes Absolute Auto 0.97 K/mm3 (0.9-3.2); Mean Corpuscular HGB Conc 33.5 g/dl (32-36); Mean Corpuscular Hemoglobin 30.0 pg (26-34); Mean Corpuscular Volume 89.7 fl (80-100); Nucleated Red Blood Cells Absolute Auto 0.000 K/mm3 (0.0-0.012); Nucleated Red Blood Cells Perc 0.0 % (0.0-0.2); Platelet Count Result 216 k/mm3 (150-375); Red Blood Count 4.56 M/mm3 (4.2-5.4); White Blood Count 13.8 K/mm3 (4.5-10.0)
[2025-04-06 12:21] LABS: Add Urine Microscopic? YES; Appearance Urine Cloudy (Clear); Glucose Urine UA Negative (Negative); Leukocyte Esterase Ur 3+ LEU/UL (Negative); Nitrate Urine Negative (Negative); Non Pathogenic Casts 0-2; Specific Grav Ur 1.027 (1.001-1.035)
[2025-04-06] MEDS: ONDANSETRON INJ 4 MG/2 ML VIAL IV PUSH (12:25)
[2025-04-06 12:29] LABS: Alanine Aminotransferase 18 U/L (6-35); Albumin Level 4.7 g/dL (3.5-5.1); Alkaline Phosphatase 72 U/L (38-126); Anion Gap 7 mmol/L (4-12); Aspartate Amino Transferase 21 U/L (14-36); Bilirubin,Total 0.8 mg/dL (0.2-1.3); Blood Urea Nitrogen 7 mg/dL (7-17); Calcium 9.6 mg/dL (8.4-10.2); Carbon Dioxide 25 mmol/L (22-30); Chloride 104 mmol/L (98-107); Estimated CRCL calculation 131 ml/min; Estimated Glomerular Filt Rate > 60; Glucose 101 mg/dL (65-110); Lipase 61 U/L (23-300); Potassium 3.8 mmol/L (3.4-5.0); Sodium 136 mmol/L (137-145); Total Protein 8.5 g/dL (6.3-8.2)
[2025-04-06] MEDS: ACETAMINOPHEN 500 MG TABLET 1000 MG PO (13:17)
== END 2025-04-06 13:39 | disposition home or self-care (01) ==
PROVIDERS: Emergency Provider Nurse Practitioner Family
DX: O23.11 Infections of bladder in pregnancy, first trimester (principal); Z3A.12 12 weeks gestation of pregnancy; O21.0 Mild hyperemesis gravidarum
CPT/HCPCS: 36415; 80053; 81001; 83690; 84702; 85025; 96361; 96374; 99284; A9270; J2405; J7030